=== PATIENT | male | born 1975 | race Caucasian/White ===

== ENCOUNTER → 2023-09-08 15:26 | Outpatient (CLI) | payer OTHER, SELFPAY ==
--- NOTE | ~2023-09-08 | XR_ITS ---
EXAMINATION: XR lumbar spine 2-3V DATE: 09/08/2023 15:40 INDICATION: Low back pain, unspecified. TECHNIQUE: 3 views of lumbar spine were obtained. COMPARISON: None. FINDINGS: Bone alignment is normal. There is mild chronic anterior wedging of T12 vertebral body. The re is mildly decreased disc height at L3-L4. There is multilevel mild facet joint osteoarthritis. IMPRESSION: 1. Mild lumbar spondylosis. Reviewed, dictated and finalized at location E. ON WRAPPER IMPRESSION: 1. Mild lumbar spondylosis.
== END ==
PROVIDERS: PCP Nurse Practitioner Family; Visit Provider Nurse Practitioner Family
DX: M54.32 Sciatica, left side (principal); M54.50 Low back pain, unspecified; M43.06 Spondylolysis, lumbar region
CPT/HCPCS: 72100

== ENCOUNTER 2023-09-16 13:00 | Outpatient (CLI) | payer OTHER, SELFPAY ==
--- NOTE | ~2023-09-16 | CT_ITS ---
EXAMINATION: CTA brain DATE: 09/16/2023 13:39 INDICATION: Sudden visual loss, unspecified eye. TECHNIQUE: Computed tomographic angiography (CTA) of the head was performed without and with 100 mL O mnipaque-350 intravenous contrast. Automated exposure control and iterative reconstruction technique were employed. The dose-length product was 1284.55 mGy-cm. Maximum intensity projection 3D reconstru ctions were created. Volume-rendered 3D reconstructions of the intracranial arteries were created by the technologist on a separate workstation. COMPARISON: None. FINDINGS: There is no intracranial hemorrhage, acute infarction, or abnormal intracranial mass lesion . The ventricles are normal in size. There is mucosal thickening in the paranasal sinuses including n ear complete opacification of right maxillary sinus. There is thickening and sclerosis of the ricardo o f right maxillary sinus, consistent with chronic sinusitis. The orbits are normal. There is a trace l eft mastoid effusion. There are vertebral arteries are codominant. There is no significant stenosis o f basilar artery or the posterior cerebral arteries. There is no significant stenosis of the intracra nial internal carotid arteries or anterior or middle cerebral arteries. Anterior communicating artery is normal. The posterior communicating arteries are normal. There is no aneurysm. IMPRESSION: 1. Normal brain. 2. No aneurysm or significant intracranial arterial stenosis. 3. Chronic sinusitis. Reviewed, dictated and finalized at location A.
--- NOTE | ~2023-09-16 | CT_ITS ---
EXAMINATION: CT cervical spine wo con DATE: 09/16/2023 13:39 INDICATION: Anesthesia of skin. TECHNIQUE: Computed tomography (CT) of the cervical spine was performed without intravenous contrast. Automated exposure control and iterative reconstruction technique were employed. The dose-length pro duct was 561.46 mGy-cm. COMPARISON: None FINDINGS: Bone alignment is normal. Vertebral body heights are normal. There is an old healed fractur e of spinous process of T1. Intervertebral disc heights are normal. The following disc levels are spe cifically discussed: C2-C3: There is mild bilateral uncovertebral joint osteoarthritis. There is mild bilateral facet join t osteoarthritis. There is no neural foraminal stenosis. There is no central canal stenosis. C3-C4: There is mild bilateral uncovertebral joint osteoarthritis. There is mild bilateral facet join t osteoarthritis. There is no neural foraminal stenosis. There is no central canal stenosis. C4-C5: There is mild bilateral uncovertebral joint osteoarthritis. There is mild bilateral facet join t osteoarthritis. There is no neural foraminal stenosis. There is no central canal stenosis. C5-C6: There is mild right uncovertebral joint osteoarthritis. There is mild bilateral facet joint os teoarthritis. There is no neural foraminal stenosis. There is no central canal stenosis. C6-C7: There is mild right uncovertebral joint osteoarthritis. There is mild bilateral facet joint os teoarthritis. There is mild right neural foraminal stenosis. There is no central canal stenosis. C7-T1: There is mild left uncovertebral joint osteoarthritis. There is moderate bilateral facet joint osteoarthritis. There is no neural foraminal stenosis. There is no central canal stenosis. IMPRESSION: 1. Mild cervical spondylosis. Reviewed, dictated and finalized at location A.
[2023-09-16 13:33] LABS: Estimated Glomerular Filt Rate > 60
== END 2023-09-16 13:01 | disposition home or self-care (01) ==
LOC: ANHIMG 13:01
PROVIDERS: PCP Nurse Practitioner Family; Visit Provider Nurse Practitioner Adult Health
DX: R20.2 Paresthesia of skin (principal); H53.139 Sudden visual loss, unspecified eye; R20.0 Anesthesia of skin; M43.02 Spondylolysis, cervical region; J32.9 Chronic sinusitis, unspecified
CPT/HCPCS: 36415; 70496; 72125; Q9967

== ENCOUNTER 2023-09-27 21:23 | Inpatient (IN) | payer OTHER, SELFPAY ==
--- NOTE | ~2023-09-27 | MR_ITS ---
EXAMINATION: MR brain/brain stem wo con DATE: 09/28/2023 08:29 INDICATION: Left lower extremity weakness and numbness. Vision change. TECHNIQUE: Magnetic resonance imaging (MRI) of the brain and brainstem was performed without intraven ous contrast. COMPARISON: Head CT 09/16/2023 FINDINGS: There are greater than 15 foci of nonspecific increased T2-weighted signal intensity in the cerebral white matter. There is no intracranial hemorrhage, acute infarction, or abnormal intracrani al mass lesion. The ventricles are normal in size. The orbits are normal. There is mucosal thickening in the paranasal sinuses including complete opacification of right maxillary sinus. The mastoid air cells are normal. IMPRESSION: 1. Mild nonspecific cerebral white matter disease. The differential diagnosis includes premature house coordinator aaron small vessel ischemic disease (especially if the patient has cardiovascular risk factors), demyel inating disease such as multiple sclerosis, drug abuse, vasculitis, or reactive astrocytosis (gliosis ) secondary to nonspecific etiology. Reviewed, dictated and finalized at location E. IMPRESSION: 1. Mild nonspecific cerebral white matter disease. The differential diagnosis i ncludes premature chronic small vessel ischemic disease (especially if the ryan ent has cardiovascular risk factors), demyelinating disease such as multiple sc lerosis, drug abuse, vasculitis, or reactive astrocytosis (gliosis) secondary t o nonspecific etiology.
--- NOTE | ~2023-09-27 | MR_ITS ---
EXAMINATION: MR lumbar spine wo/w con DATE: 09/28/2023 08:29 INDICATION: Left lower extremity weakness and numbness. TECHNIQUE: Magnetic resonance imaging (MRI) of the lumbar spine was performed without and with 20 mL MultiHance intravenous contrast. COMPARISON: None FINDINGS: There is 4 degrees dextrocurvature of thoracolumbar spine. There are chronic bilateral L5 p ars defects. There is 5 mm anterolisthesis of L5 on S1. There are Schmorl's nodes at many levels. The re is chronic mild height loss of L5 vertebral body posteriorly. There is moderately decreased disc h eight at L3-L4 and L5-S1. The distal spinal cord signal intensity is normal. The conus medullaris is at T12-L1. The following disc levels are specifically discussed: L1-L2: The disc does not extend beyond the endplate margin. There is mild bilateral facet joint osteo arthritis. There is no neural foraminal stenosis. There is no central canal stenosis. L2-L3: The disc does not extend beyond the endplate margin. There is moderate bilateral facet joint o steoarthritis. There is no neural foraminal stenosis. There is no central canal stenosis. L3-L4: The disc is bulging and has an annular fissure. There is mild bilateral facet joint osteoarthr itis. There is mild bilateral neural foraminal stenosis. There is mild central canal stenosis. L4-L5: There is a left foraminal protrusion. There is mild bilateral facet joint osteoarthritis. Ther e is mild left neural foraminal stenosis. There is no central canal stenosis. L5-S1: The disc is bulging and has an annular fissure. There is mild bilateral facet joint osteoarthr itis. There is mild bilateral neural foraminal stenosis. There is mild central canal stenosis. IMPRESSION: 1. Chronic bilateral L5 pars defects with grade 1 anterolisthesis of L5 on S1. 2. Moderate lumbar spondylosis. Reviewed, dictated and finalized at location E.
[2023-09-27 21:25] VITALS: BP 143/109; PULSE 73; RESP 20; TEMP 36.2; O2SAT 100
--- NOTE | 2023-09-27 23:59 | PM.IMHP ---
H&P: HPI History of Present Illness Date/Time: 09/27/23 23:59 Chief Complaint: back pain Narrative: this is a 47-year-old male with past medical history significant for hypertension, migraine headache. Patient presented to the emergency room due to intractable lower back pain with radiation bilaterally to lower extremities and left lower extremity weakness. Patient had been seen in the outpatient setting after participating in a [employer] class while lifting heavy equipment and strenuous exercise experimented excruciating lower back pain. Patient with possible bulging disc in the lumbar area today presents to the emergency room due to intractable pain and left lower extremity weakness. Patient has been admitted for further evaluation management and treatment. Review of Systems Review of Systems: Lower back pain, left lower extremity weakness, sensation of pins and needles and burning Constitutional: Constitutional: Denies chills, Denies fever(s) and Denies night sweats Eyes: Eyes: Reports other visual disturbances ( ) ENT: Denies dysphagia and Denies odynophagia Cardiovascular: Cardiovascular: Denies chest pain, Denies radiating jaw, neck or arm pain and Denies palpitations Respiratory: Respiratory: Denies cough, Denies excessive phlegm production and Denies dyspnea Gastrointestinal: Gastrointestinal: Denies abdominal pain, Denies dyspepsia, Denies diarrhea, Denies nausea and Denies vomiting Genitourinary: Genitourinary: Denies dysuria Musculoskeletal: Musculoskeletal: Reports back pain and Reports muscle weakness ( left lower extremity) Integumentary/Breasts: Skin/Breast: Denies rash Neurologic: Reports abnormal gait, Reports focal weakness ( left lower extremity), Reports loss of vision, Reports numbness, Reports radicular pain and Reports paresthesias Psychiatric: Psychiatric: Reports no additional psychiatric complaints and Reports as per HPI Endocrine: Endocrine: Denies cold intolerance, Denies fatigue, Denies flushing, Denies heat intolerance, Denies polyphagia, Denies polydipsia, Denies polyuria and Denies palpitations Hematologic/Lymphatic: Hematologic/Lymphatic: Reports no additional hematologic/lymphatic complaints and Reports as per HPI Allergic/Immunologic: Allergic/Immunologic: Reports no additional allergic/immunologic complaints and Reports as per HPI PMFSH Past Medical History Medical History Acute loss of vision Anxiety BMI 26.0-26.9,adult BMI 27.0-27.9,adult Bulging lumbar disc Lumbar spondylosis Migraine Numbness and tingling of both upper extremities Orbital fracture (~1989) surgical reconstruction with metal plates. Family History Family History Father Heart disease Diabetes mellitus Hypertension Mother Depression Anxiety Sibling Migraine Social History Social History Social History: Caffeine- soda Smoking status: Never smoker Second hand tobacco smoke exposure: Yes Alcohol intake: never Substance use: never Substance use type: does not use Do You Feel Safe in your Home?: Yes Lack of Transportation: No Lack of Food: Never True Current Housing: I Have Housing Concerned About Future Housing: No Difficulty Paying Gas/Electric Bills: No Difficulty Paying for Meds: No Currently Unemployed: No Education: Master's Degree or Higher Difficulty w/ Childcare or Family Care: No Living arrangements: with family Occupation/Education: occupation Additional occupation/education comments: [employer] Gender identity (if verbalized by the patient): Male Sexual Orientation (if Verbalized by the Patient): Straight or Heterosexual Spiritual care concerns: No Agree to blood products: Yes Meds Home Medications and Allergies Home Medications Medication Inst
[2023-09-28] VITALS (7 sets, daily range): BP systolic 124–152; BP diastolic 73–87; PULSE 54–101; RESP 17–20; TEMP 36.5–36.9; O2SAT 95–100; BMI 32.5; BMI 33.5
[2023-09-28] MEDS: HYDROcodone/acetaminophen (*CRX) 5-325 MG TABLET 1 TAB PO (00:05)
[2023-09-28 00:19] LABS: Basophils Absolute Auto 0.1 K/mm3 (0.0-0.1); Basophils Percent Auto 1.4 % (0.2-1.2); Eosinophils Absolute Auto 0.2 K/mm3 (0-0.3); Eosinophils Percent Auto 2.8 % (0-4.4); Hematocrit 44.8 % (42.0-52.0); Hemoglobin 15.2 g/dL (14.0-18.0); Immature Granulocyte Absolute 0.04 K/mm3 (0.00-0.031); Immature Granulocyte Percent A 0.6 % (0-0.5); Lymphocytes Absolute Auto 2.17 K/mm3 (0.9-3.2); Lymphocytes Percent Auto 33.9 % (18.3-44.2); Mean Corpuscular HGB Conc 33.9 g/dl (32-36); Mean Corpuscular Hemoglobin 30.5 pg (26-34); Mean Corpuscular Volume 89.8 fl (80-100); Mean Platelet Volume 9.4 fl (7.4-10.4); Monocytes Absolute Auto 0.8 K/mm3 (0.1-0.6); Monocytes Percent Auto 11.9 % (2.6-8.5); Neutrophils Absolute Auto 3.2 K/mm3 (1.3-6.7); Neutrophils Percent Auto 49.4 % (45.5-73.1); Platelet Count Result 345 k/mm3 (150-375); Red Blood Count 4.99 M/mm3 (4.6-6.20); Red Cell Distribution Width 12.1 % (11.5-14.5); White Blood Count 6.4 K/mm3 (4.5-10.0)
[2023-09-28 00:31] LABS: Alanine Aminotransferase 33 U/L (6-50); Albumin Level 4.2 g/dL (3.5-5.1); Alkaline Phosphatase 44 U/L (38-126); Anion Gap 7 mmol/L (8-16); Aspartate Amino Transferase 30 U/L (17-59); Bilirubin,Total 0.4 mg/dL (0.2-1.3); Blood Urea Nitrogen 16 mg/dL (9-20); Carbon Dioxide 23 mmol/L (22-30); Chloride 106 mmol/L (98-107); Estimated CRCL calculation 126 ml/min; Estimated Glomerular Filt Rate > 60; Glucose 99 mg/dL (65-110); Potassium 4.2 mmol/L (3.4-5.0); Sodium 136 mmol/L (137-145)
--- NOTE | 2023-09-28 00:32 | ED.BACK ---
HPI - Back Pain/Injury General Chief Complaint: Back Pain/Injury Stated Complaint: back pain Time Seen by Provider: 09/27/23 23:03 History of Present Illness HPI Narrative: Patient is a 47-year-old male who presents to the emergency department this evening complaining of lower back pain and left lower extremity weakness and numbness. Patient states the numbness is mainly along the medial aspect of his left foot. Patient sustained a lower back injury while doing CrossFit on September 02 and since then has been struggling lower back pain radiating to his left leg. Patient finally saw a neurosurgeon earlier today inform him that he has a bulging disc around L4 on L5 and recommended an MRI. Neurosurgeon told him to come to the emergency department if his symptoms worsen. who is currently present at bedside states that patient has been prescribed Percocet and a muscle relaxer to help with the pain and muscle spasms, however, he had an episode prior to arrival where he had severe back pain radiating to his left leg along with left leg weakness and numbness. states that it was hard for him to walk and she had to call the knee pretty get him to help her get him in the car and bring him here. She states that this has been completely debilitating for both of them as has not been able to work and she has not been able to work either since she has been helping take care of him. 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 Patient denies any bowel or bladder incontinence. There are no other modifying, alleviating, or precipitating factors at this time. Related Data Home Medications Medication Instructions Recorded Confirmed topiramate PO 09/27/23 09/27/23 Allergies Allergy/AdvReac Type Severity Reaction Status Date / Time No Known Allergies Allergy Verified 09/27/23 21:32 Review of Systems Review of Systems: All systems are reviewed and are negative unless stated otherwise in the HPI. [facility] Past Medical History Medical History Acute loss of vision Anxiety BMI 26.0-26.9,adult BMI 27.0-27.9,adult Bulging lumbar disc Lumbar spondylosis Migraine Numbness and tingling of both upper extremities Orbital fracture (~1989) surgical reconstruction with metal plates. Family History Family History Father Heart disease Diabetes mellitus Hypertension Mother Depression Anxiety Sibling Migraine Social History Social History Social History: Caffeine- soda Smoking status: Never smoker Second hand tobacco smoke exposure: Yes Alcohol intake: never Substance use: never Substance use type: does not use Do You Feel Safe in your Home?: Yes Lack of Transportation: No Lack of Food: Never True Current Housing: I Have Housing Concerned About Future Housing: No Difficulty Paying Gas/Electric Bills: No Difficulty Paying for Meds: No Currently Unemployed: No Education: Master's Degree or Higher Difficulty w/ Childcare or Family Care: No Living arrangements: with family Occupation/Education: occupation Additional occupation/education comments: -[employer] Gender identity (if verbalized by the patient): Male Sexual Orientation (if Verbalized by the Patient): Straight or Heterosexual Spiritual care concerns: No Agree to blood products: Yes Exam Narrative: General: Alert, awake, afebrile, in no acute distress. HEENT: PERRL, no rhinorrhea, no post nasal drip, oropharynx clear. Neck: Trachea midline, no JVD, no lymphadenopathy. Cardiovascular: Regular rate and rhythm, no murmurs, rubs or gallops, no peripheral edema. Respiratory: Clear to auscultation bilaterally, no tachypnea, no wheezing, no rhonchi, no rubs, no respiratory distress. Abdomen: Soft, nontender, nondistended
[2023-09-28] MEDS: dexAMETHasone SOD PHOS INJ 10 MG/ML 1 ML VIAL 18 MG IV PUSH (03:23)
[2023-09-28] MEDS: ACETAMINOPHEN 500 MG TABLET 1000 MG PO (03:23)
[2023-09-28] MEDS: traMADol HCL (*CRX) 50 MG TABLET PO ×2 (03:24→15:09)
[2023-09-28] MEDS: HYDROmorphone HCL INJ (*CRX) 1 MG/ML SYR IV PUSH ×4 (03:24→16:57)
--- NOTE | 2023-09-28 04:53 | PC.NURSE ---
Pt A&O x4, able to make needs known. Pt c/o pain, numbness, tingling to BLE. Admission packet reviewed, medications reconciled, pt educated on rights and responsibilities, call light use explained, all questions answered.
--- NOTE | 2023-09-28 12:14 | PCCCNOTE ---
On 09/28/23, the student, [Farida Freedman], provided care and completed [facility] documentation on this patient. I have reviewed the student's documentation and agree with the findings.
--- NOTE | 2023-09-28 13:51 | PM.IMPN ---
Progress Note: A&P Assessment and Plan (1) Lumbar radiculopathy: Code(s): M54.16 - Radiculopathy, lumbar region Status: Acute (2) Spondylolysis of lumbosacral region: Code(s): M43.07 - Spondylolysis, lumbosacral region Status: Acute (3) Low back pain radiating to both legs: Code(s): M54.50 - Low back pain, unspecified; M79.604 - Pain in right leg; M79.605 - Pain in left leg Status: Acute (4) Bulging lumbar disc: Code(s): M51.36 - Other intervertebral disc degeneration, lumbar region Status: Acute (5) Hypertension: Qualifiers: Hypertension type: primary hypertension Qualified Code(s): I10 - Essential (primary) hypertension Code(s): I10 - Essential (primary) hypertension Status: Acute Plan Acute Radicular back pain BLE weakness/losses function to walk CT 09/2023: There is? bilateral pars defect at L5 without spondylolisthesis.? At L4-5 there is a bridging anterior osteophyte forming, disc height loss with bulging disc seen causing [id number] central stenosis Pain management consult to neurosurgery MRI/MRA spine Blurred Vision following with [facility]y at [facility] likely ocular migraines MRI head showed no acute stroke Resume Topiramate HTN Stable resumed home medications BP per unit protocol Code status: Full code per patient DVT prophylaxis: SCD Stress ulcer prophylaxis: Protonix 40 daily PT/OT notes: Pending Disposition: Patient continues admission for uncontrolled severe lumbar back pain with difficulty ambulating, consulte to neurosurgery, pain management and MRI pending. Time Spent With Patient Time with patient: 15 - 25 minutes Subjective Date/time seen: 09/28/23 13:51 Interval history: Admission: Medical Record This is a 47-year-old male with past medical history significant for hypertension, migraine headache.? Patient presented to the emergency room due to intractable lower back pain with radiation bilaterally to lower extremities and left lower extremity weakness.? Patient had been seen in the outpatient setting after participating in a CrossFit class while lifting heavy equipment and strenuous exercise experimented excruciating lower back pain.? Patient with possible bulging disc in the lumbar area today presents to the emergency room due to intractable pain and left lower extremity weakness.? Patient has been admitted for further evaluation management and treatment. 09/27: Patient continues to have severe back pain and inability to ambulate, near incontinence, weakness an numbness down left leg. MRI pending and consult to neurosurgery for further recommendations. As noted in ED concern for L4-L5 herniated disc. Review of Systems Review of Systems: All systems reviewed & are unremarkable except as noted in HPI and below Exam Narrative: Physical Exam: GENERAL: Alert and oriented x 3. No acute distress. Well-nourished. EYES: EOMI. No scleral icterus. PERRLA. HEENT: Moist mucous membranes. No cervical lymphadenopathy. LUNGS: Clear to auscultation bilaterally. No accessory muscle use. CARDIOVASCULAR: Regular rate and rhythm. No murmur. No JVD. S1-S2 ABDOMEN: Soft, mild tenderness and non-distended. No palpable masses. EXTREMITIES: Severe tenderness to lumbar with BLE weakness SKIN: No rashes or lesions. Skin warm, dry. NEUROLOGIC: No focal neurological deficits. CN II-XII grossly intact PSYCHIATRIC: Appropriate mood and affect. Good judgement and insight. No visual or auditory hallucinations. No suicidal or homicidal ideation. Objective Data Vital Signs Vital Signs: Vital Signs - 24 hr 09/27/23 21:25 09/28/23 00:58 09/28/23 01:09 Temperature 97.1 F L Pulse Rate 73 57 L 57 L Respiratory Rate 20 18 20 Blood Pressure 143/109 H 135/80 128/80 Pulse Oximetry 100 100 100 Oxygen Delivery Room Air 09/28/23 01:25 09/28/23 04:46 09/28/23 05:22 Temperature 9
[2023-09-28] MEDS: FLUoxetine HCL 20 MG CAPSULE 40 MG PO (15:10)
[2023-09-28] MEDS: TOPIRAMATE 25 MG TABLET 50 MG PO (20:08)
[2023-09-28] MEDS: HYDROcodone/acetaminophen (*CRX) 10-325 MG TABLET 1 TAB PO (20:08)
[2023-09-28] MEDS: METAXALONE 800 MG TABLET PO (22:59)
[2023-09-29 05:40] LABS: Hematocrit 45.3 % (42.0-52.0); Mean Corpuscular HGB Conc 33.1 g/dl (32-36); Mean Corpuscular Hemoglobin 29.6 pg (26-34); Mean Corpuscular Volume 89.5 fl (80-100); Mean Platelet Volume 9.5 fl (7.4-10.4); Platelet Count Result 376 k/mm3 (150-375); Red Blood Count 5.06 M/mm3 (4.6-6.20); Red Cell Distribution Width 11.8 % (11.5-14.5); White Blood Count 12.7 K/mm3 (4.5-10.0)
[2023-09-29 05:58] LABS: Alanine Aminotransferase 30 U/L (6-50); Albumin Level 4.2 g/dL (3.5-5.1); Alkaline Phosphatase 41 U/L (38-126); Anion Gap 7 mmol/L (4-12); Aspartate Amino Transferase 21 U/L (17-59); Bilirubin,Total 0.5 mg/dL (0.2-1.3); Blood Urea Nitrogen 16 mg/dL (9-20); Calcium 8.9 mg/dL (8.4-10.2); Carbon Dioxide 25 mmol/L (22-30); Chloride 104 mmol/L (98-107); Estimated CRCL calculation 126 ml/min; Estimated Glomerular Filt Rate > 60; Glucose 106 mg/dL (65-110); Sodium 136 mmol/L (137-145)
[2023-09-29 06:00] VITALS: BP 127/79; PULSE 64; RESP 20; TEMP 36.6; O2SAT 99
[2023-09-29 09:07] VITALS: BP 142/80; PULSE 81
[2023-09-29] MEDS: amLODIPine BESYLATE 5 MG TABLET 10 MG PO (09:08)
[2023-09-29] MEDS: FLUoxetine HCL 20 MG CAPSULE 40 MG PO (09:08)
[2023-09-29] MEDS: HYDROcodone/acetaminophen (*CRX) 5-325 MG TABLET 1 TAB PO (09:09)
[2023-09-29] MEDS: PANTOPRAZOLE 40 MG TABLET PO (09:09)
[2023-09-29] MEDS: OLMESARTAN MEDOXOMIL 20 MG TABLET 40 MG PO (09:09)
--- NOTE | 2023-09-29 13:07 | WPDNEURCNPN ---
Assessment and Plan Assessment and plan (1) Spondylolysis of lumbosacral region: Code(s): M43.07 - Spondylolysis, lumbosacral region Status: Acute (2) Low back pain radiating to both legs: Code(s): M54.50 - Low back pain, unspecified; M79.604 - Pain in right leg; M79.605 - Pain in left leg Status: Acute Assessment and Plan: Patient presented to the Emergency Dept due to exacerbation of low back pain and left greater than right leg symptoms that have been going on since 09/03/2023, while doing CrossFit exercises. MRI of the lumbar spine revealed spondylolisthesis of L5 over S1 with bilateral L5 pars defect. There is mild neuroforaminal stenosis on the left at L4-5. There is no significant central stenosis or further foraminal stenosis throughout. Suspect the patient is symptomatic from his spondylolysis/ spondylolisthesis at L5-S1 and could have instability at this level, this would be confirmed by obtaining lumbar flexion and extension x-rays. Dr. Ching discussed with the patient his yesterday, and recommended PM treatments given his symptoms have been occurring only for this past month. He may benefit from an L5-S1 epidural steroid injection vs a left L5-S1 transforaminal MAYRA.. If this consult cannot be obtained while the patient is in-house, then we recommend he follow-up with PM as an outpatient. I will order an LSO brace for the patient to have and wear when upright and ambulating as this may give him a little extra support especially if he does have instability at this level. He was instructed to follow-up with Dr. Ching in the near future and to have lumbar x-rays including flexion and extension views done just prior to this visit. Our office will coordinate this with the patient and placed these x-ray orders. Consult date: 09/29/23 Reason for consult: ?The patient is a pleasant 47-year-old male who presented To the ER on this admission with intractable back and left leg symptoms. He was just seen in our clinic on 09/27/2023, this was his initial visit. He had several symptom complaints on that visti but mainly for severe low back pain radiating into the posterior aspect of his left leg to his knee region.? He also reports numbness and tingling sensation in his bilateral groin region, medial aspect of bilateral thighs, and? bilateral feet diffusely. ? His symptoms started after a CrossFit injury on 09/03/2023,? the patient has not be able to get out of severe pain since this date.? ? He has other complaints in addition to increase migraines and spotty vision that have not resolved after the migraines improved and is currently being evaluated by Dr. Brown with Neurology with an? MRI/MRA of the brain and MRA cervical spine pending.? ? Patient had a CTA of the brain that was negative for any vascular lesion nor acute stroke on that study.? He's also had a CT of the cervical spine and lumbar spine.? The lumbar CT study shows he has bilateral L5 pars defect /spondylolysis,? and disc height loss mainly at L4-5 with a central disc bulge and anterior bridging osteophyte. Patient states he presented to the ER due to worsening of numbness and tingling in the left foot along the great toe and dorsum region and then felt like it was ascending up his leg. He states his son touch discharge object to his foot and he did not feel it. He also reports ongoing back pain with radiation into bilateral hips. An MRI was obtained of the lumbar spine and also of the brain. No acute pathology was noted on the brain MRI. The patient was also evaluated by my attending Dr. Ching yesterday. HPI: Tramaine Gonsalez is a 47 year old male PMFSH Past Medical History Medical History Acute loss of vision Anxiety BMI 26.0-26.9,adult BMI 27.0-27.9,adult Bulging lumbar disc Lumbar spondylosis Migraine Numbness and tingling of both upper ex
[2023-09-29 13:37] VITALS: BP 128/59; PULSE 65; RESP 16; TEMP 36.4; O2SAT 97
[2023-09-29] MEDS: HYDROcodone/acetaminophen (*CRX) 10-325 MG TABLET 1 TAB PO (14:44)
--- NOTE | 2023-09-29 14:52 | PM.IMPN ---
Progress Note: A&P Assessment and Plan (1) Lumbar radiculopathy: Code(s): M54.16 - Radiculopathy, lumbar region Status: Acute Assessment and Plan: BLE weakness/losses function to walk CT 09/2023: There is? bilateral pars defect at L5 without spondylolisthesis.? At L4-5 there is a bridging anterior osteophyte forming, disc height loss with bulging disc seen causing [id number] central stenosis Pain management consult to neurosurgery MRI/MRA spine (2) Spondylolysis of lumbosacral region: Code(s): M43.07 - Spondylolysis, lumbosacral region Status: Acute (3) Low back pain radiating to both legs: Code(s): M54.50 - Low back pain, unspecified; M79.604 - Pain in right leg; M79.605 - Pain in left leg Status: Acute (4) Bulging lumbar disc: Code(s): M51.36 - Other intervertebral disc degeneration, lumbar region Status: Acute (5) Hypertension: Qualifiers: Hypertension type: primary hypertension Qualified Code(s): I10 - Essential (primary) hypertension Code(s): I10 - Essential (primary) hypertension Status: Acute Plan Acute Radicular back pain Blurred Vision following with [facility]y [facility] likely ocular migraines MRI head showed no acute stroke Resume Topiramate HTN Stable resumed home medications BP per unit protocol Code status: Full code per patient DVT prophylaxis: SCD Stress ulcer prophylaxis: Protonix 40 daily PT/OT notes: Pending Disposition: Patient continues admission for uncontrolled severe lumbar back pain with difficulty ambulating, consulte to neurosurgery, pain management and MRI pending. Subjective Date/time seen: 09/29/23 14:52 Objective Data Vital Signs Vital Signs: Vital Signs - 24 hr 09/28/23 21:25 09/29/23 06:00 09/29/23 09:07 Temperature 98.2 F 97.9 F Pulse Rate 101 H 64 81 Respiratory Rate 19 20 Blood Pressure 132/76 127/79 142/80 H Pulse Oximetry 98 99 Oxygen Delivery 09/29/23 13:37 09/29/23 08:00 Temperature 97.5 F L Pulse Rate 65 Respiratory Rate 16 Blood Pressure 128/59 L Pulse Oximetry 97 Oxygen Delivery Room Air Intake/Output Intake/Output: Intake & Output 09/26/23 09/27/23 09/28/23 09/29/23 23:59 23:59 23:59 23:59 Intake Total 510 1075 Balance 510 1075 Meds/Results Medications: Active Medications Generic Name Dose Route Start Last Admin Trade Name Freq PRN Reason Stop Dose Admin Acetaminophen 1,000 mg 09/28/23 02:26 09/28/23 03:23 Acetaminophen 500 Mg Tablet PO 1,000 mg Q6H PRN Administration Mild Pain (1-3) or Fever Hydrocodone Bitart/Acetaminophen 1 tab 09/28/23 17:48 09/29/23 09:09 Hydrocodone/Acetaminophen (*Crx) 5-325 Mg Tablet PO 1 tab Q6H PRN Administration Pain Rated 4-6 Hydrocodone Bitart/Acetaminophen 1 tab 09/28/23 17:51 09/29/23 14:44 Hydrocodone/Acetaminophen (*Crx) 10-325 Mg Tablet PO 1 tab Q6H PRN Administration Pain Rated 7-10 Amlodipine Besylate 10 mg 09/29/23 09:00 09/29/23 09:08 Amlodipine Besylate 5 Mg Tablet PO 10 mg DAILY SIMEON Administration Dexamethasone Sodium Phosphate 18 mg 09/28/23 03:00 09/29/23 11:05 Dexamethasone Sod Phos Inj 10 Mg/Ml 1 Ml Vial 0.15 mg/kg (18 mg) Not Given IV PUSH Q6HR SIMEON Fluoxetine HCl 40 mg 09/28/23 14:15 09/29/23 09:08 Fluoxetine Hcl 20 Mg Capsule PO 40 mg DAILY SIMEON Administration Hydromorphone HCl 1 mg 09/28/23 02:26 09/28/23 16:57 Hydromorphone Hcl Inj (*Crx) 1 Mg/Ml Syr IV PUSH 1 mg Q3H PRN Administration Pain Rated 7-10 Metaxalone 800 mg 09/28/23 14:07 09/28/23 22:59 Metaxalone 800 Mg Tablet PO 800 mg QID PRN Administration muscle pain Olmesartan 40 mg 09/29/23 09:00 09/29/23 09:09 Olmesartan Medoxomil 20 Mg Tablet PO 40 mg DAILY SIMEON Administration Pantoprazole Sodium 40 mg 09/29/23 09:00 09/29/23 09:09 Pantoprazol
--- NOTE | 2023-09-29 16:05 | PM.DS ---
DS: Admitting Diagnosis Discharge Date 09/29/23 Admitting Diagnosis bilateral lower extremity numbness DS: Discharge Diagnosis Discharge Diagnosis (1) Lumbar radiculopathy: Code(s): M54.16 - Radiculopathy, lumbar region Status: Acute (2) Spondylolysis of lumbosacral region: Code(s): M43.07 - Spondylolysis, lumbosacral region Status: Acute (3) Low back pain radiating to both legs: Code(s): M54.50 - Low back pain, unspecified; M79.604 - Pain in right leg; M79.605 - Pain in left leg Status: Acute (4) Bulging lumbar disc: Code(s): M51.36 - Other intervertebral disc degeneration, lumbar region Status: Acute (5) Hypertension: Qualifiers: Hypertension type: primary hypertension Qualified Code(s): I10 - Essential (primary) hypertension Code(s): I10 - Essential (primary) hypertension Status: Acute DS: Summary Hospital Course Hospital Course: This is a 47-year-old male with past medical history significant for hypertension, migraine headache.? Patient presented to the emergency room due to intractable lower back pain with radiation bilaterally to lower extremities and left lower extremity weakness.? Patient had been seen in the outpatient setting after participating in a [employer] class while lifting heavy equipment and strenuous exercise experimented excruciating lower back pain.? CT of the lumbar spine showing pars defect at L5 without spondylolisthesis, L4-L5 there is a bridging anterior osteophyte forming, disc height loss and bulging disc seen causing osxl-av-[id number] central stenosis. Patient has been seeing Neurosurgery outpatient for this back pain. MRI of the lumbar spine showing chronic bilateral L5 pars defects with grade 1 anteriorlisthesis of L5 on S1 and moderate lumbar spondylosis. Neurosurgery consulted. patient still able to walk and has control of bowels and bladder. Patient is still in pain although this is suspected due to his injury Nerosurgry recommending an LSO brace and a follow-up with them as an outpatient. His labs and vital signs are stable knee is medically clear for discharge. Time Spent with Patient Time attestation: Total time spent providing and/or coordinating discharge services: Exam Narrative: GENERAL: Comfortable, no acute distress HENMT: moist mucous membranes EYES: EOM intact b/l NECK: no lymphadenopathy RESPIRATORY: clear to auscultation, no increased respiratory effort CARDIO: Regular rate and rhythm GI: soft, nontender, bowel sounds present SKIN/EXTREMITIES: no rashes, no edema, no redness or tenderness NEURO: PROM intact, answers questions appropriately, A&O x4 DS: Data Data Completed and Pending Labs on day of discharge: Labs from last 24 hours 09/29/23 05:05 WBC 12.7 H RBC 5.06 Hgb 15.0 Hct 45.3 MCV 89.5 MCH 29.6 MCHC 33.1 RDW 11.8 Plt Count 376 H MPV 9.5 Sodium 136 L Potassium 4.0 Chloride 104 Carbon Dioxide 25 Anion Gap 7 L BUN 16 Creatinine 0.90 Estim Creat Clear Calc 126 Estimated GFR > 60 Glucose 106 Calcium 8.9 Total Bilirubin 0.5 AST 21 ALT 30 Alkaline Phosphatase 41 Total Protein 7.0 Albumin 4.2 Discharge Plan Discharge Attending physician on discharge: Ervin Tesfaye Consulting providers: William Berg Discharging Clinician: Ellie Lino Patient Disposition: Home, Self-Care Activity: as tolerated Diet: regular Discharge Instructions: Plan follow-up with Neurosurgery in approximately 1 week. Please wear LSO brace while upright and when ambulating. Plan for outpatient x-rays of the lumbar spine. Follow up with pain management. Discharge disposition: Take medications as prescribed Monitor blood pressures Avoid social areas, you wear a mask when in social settings Encouraged to continue with yearly vaccinations Return to the emergency department if he developed sudden shortness of breath, chest pain, na
== END 2023-09-29 17:10 | disposition home or self-care (01) | DRG 552 ==
LOC: ANHED 09-28 00:33 → ANH2MED 09-28 01:02
PROVIDERS: Nurse Practitioner Family; Admitting Provider Internal Medicine; Emergency Provider Emergency Medicine; PCP Family Medicine; Visit Provider Family Medicine
DX: M47.26 Other spondylosis with radiculopathy, lumbar region (principal); M51.36 Other intervertebral disc degeneration, lumbar region; I10 Essential (primary) hypertension; G43.909 Migraine, unspecified, not intractable, without status migrainosus; F41.9 Anxiety disorder, unspecified
CPT/HCPCS: 36415; 70551; 72158; 80053; 85025; 85027; 99285; A9270; A9577; J1100; J1170

== ENCOUNTER 2023-10-03 08:50 | Outpatient (CLI) | payer OTHER, SELFPAY ==
--- NOTE | ~2023-10-03 | MR_ITS ---
MRI of the cervical spine Clinical History: Paresthesia Technique: Axial T2-weighted and gradient images, and sagittal T1-weighted, T2-weighted, and STIR thelma ges were acquired. Findings: There is no fracture or subluxation of the cervical spine. Vertebral bodies maintain normal height and alignment. No bone marrow signal abnormality seen. At C2-C3, there is no disc bulge or herniation. No spinal canal stenosis, cord compression, or neural foraminal narrowing. At C3-C4, there is minimal disc osteophyte complex. No spinal canal stenosis, cord compression, or de finite neural foraminal narrowing. At C4-C5, there is minimal disc osteophyte complex. No spinal canal stenosis, cord compression, or de finite neural foraminal narrowing. At C5-C6, there is no disc bulge or herniation. No spinal canal stenosis, cord compression, or neural foraminal narrowing. At C6-C7, there is probable disc osteophyte complex at the right foraminal region with mild right tito ral foraminal narrowing. Left neural foramen preserved. No central canal stenosis or cord compression . No abnormal signal evident in the spinal cord. Paravertebral soft tissues are unremarkable. Impression: Mild degenerative spondylosis, as above. Reviewed, dictated and finalized at location . Impression: Mild degenerative spondylosis, as above.
== END 2023-10-03 08:51 | disposition home or self-care (01) ==
PROVIDERS: PCP Family Medicine; Visit Provider Nurse Practitioner Adult Health
DX: R20.2 Paresthesia of skin (principal); R20.0 Anesthesia of skin; M43.02 Spondylolysis, cervical region
CPT/HCPCS: 72141

== ENCOUNTER 2023-10-05 12:33 | Outpatient (CLI) | payer OTHER, SELFPAY ==
--- NOTE | ~2023-10-05 | XR_ITS ---
XR lumbar spine min 4V DATE: 10/05/2023 13:13 INDICATION: Skin anesthesia TECHNIQUE: Weightbearing AP, lateral, coned lateral lumbosacral and flexion and extension lateral vie ws COMPARISON: None FINDINGS: There is suggestion of L5 pars intra-articular is defects with grade 1 anterolisthesis at L 5-S1, relatively stable in flexion, extension and neutral. Moderately prominent degenerative disc disease and prominent anterior an mild posterior spurring at L 3-4. The remaining lumbar and lumbosacral interspaces appear relatively well preserved. No fracture or bone destruction is noted otherwise. The included lower thoracic and lumbar pedicles a re intact. The sacroiliac joints appear normal. IMPRESSION: Suspected bilateral pars interarticularis defects at L5 with grade 1 anterolisthesis at L 5-S1 Moderately prominent degenerative disc disease at L3-4 Reviewed, dictated and finalized at location B. IMPRESSION: Suspected bilateral pars interarticularis defects at L5 with grade 1 anterolisthesis at L5-S1 Moderately prominent degenerative disc disease at L3-4
== END 2023-10-05 12:34 | disposition home or self-care (01) ==
PROVIDERS: PCP Family Medicine; Visit Provider Physician Assistant
DX: M51.36 Other intervertebral disc degeneration, lumbar region (principal)
CPT/HCPCS: 72110

== ENCOUNTER 2023-11-30 11:37 | Outpatient (CLI) | payer OTHER, SELFPAY ==
--- NOTE | 2023-11-30 11:30 | ECG_ITS ---
SEE SCANNED COPY FOR CONFIRMED REPORT MTDD
[2023-11-30 12:17] LABS: Hematocrit 44.2 % (42.0-52.0); Mean Corpuscular HGB Conc 33.9 g/dl (32-36); Mean Corpuscular Hemoglobin 30.2 pg (26-34); Mean Corpuscular Volume 89.1 fl (80-100); Mean Platelet Volume 9.4 fl (7.4-10.4); Platelet Count Result 365 k/mm3 (150-375); Red Blood Count 4.96 M/mm3 (4.6-6.20); Red Cell Distribution Width 12.7 % (11.5-14.5); White Blood Count 6.8 K/mm3 (4.5-10.0)
[2023-11-30 12:22] LABS: Anion Gap 6 mmol/L (4-12); Blood Urea Nitrogen 16 mg/dL (9-20); Carbon Dioxide 26 mmol/L (22-30); Chloride 108 mmol/L (98-107); Estimated Glomerular Filt Rate > 60; Glucose 92 mg/dL (65-110); Potassium 4.3 mmol/L (3.4-5.0); Sodium 140 mmol/L (137-145)
[2023-11-30 12:25] LABS: Appearance Urine Clear (Clear); Bilirubin Urine Negative (Negative); Blood Urine Negative (Negative); Color Urine Yellow (Yellow); Glucose Urine UA Negative (Negative); Ketones Urine Negative (Negative); Leukocyte Esterase Ur Negative LEU/UL (Negative); Nitrate Urine Negative (Negative); Protein Urine Negative (Negative); Specific Grav Ur 1.006 (1.001-1.035); Urobilinogen Urine 0.2 mg/dL (<2.0); pH Urine 5.5 (5.0-9.0)
[2023-11-30 12:27] LABS: INR 0.9; Prothrombin Time 12.4 Seconds (11.1-14.7)
[2023-11-30 12:28] LABS: Partial Thromboplastin Time 24.3 Seconds (22.3-36.8)
[2023-11-30 12:32] LABS: Add Urine Microscopic? NO
== END 2023-11-30 11:38 | disposition home or self-care (01) ==
LOC: ANHSURGERY 11:44
PROVIDERS: PCP Family Medicine; Visit Provider Neurological Surgery
DX: Z01.818 Encounter for other preprocedural examination (principal); M54.16 Radiculopathy, lumbar region; I10 Essential (primary) hypertension
CPT/HCPCS: 36415; 80048; 81003; 85027; 85610; 85730; 86850; 86900; 86901; 93005

== ENCOUNTER 2023-12-01 21:04 | Emergency (ER) | payer OTHER, SELFPAY ==
--- NOTE | ~2023-12-01 | XR_ITS ---
EXAM: XR knee RT min 4V DATE: 12/01/2023 21:27 HISTORY: laceration . COMPARISON: None available. FINDINGS: Normal mineralization. No fracture or dislocation. No lytic or blastic lesion. Mild medial joint space narrowing. Mild tricompartmental osteophytosis. No erosion or periosteal change. Minimal vascular calcification. IMPRESSION: No acute osseous finding in the right knee. Reviewed, dictated and finalized at location K.
[2023-12-01 21:05] VITALS: BP 137/82; PULSE 86; RESP 16; TEMP 36.4; O2SAT 96
--- NOTE | 2023-12-01 21:40 | ED.LOWEXIN ---
HPI - Extremity Injury (Lower) General Chief Complaint: Extremity Injury, Lower Stated Complaint: right knee laceration Time Seen by Provider: 12/01/23 21:18 History of Present Illness HPI Narrative: 48-year-old male presents to emergency department with his at bedside for laceration proximal to his right knee that occurred just prior to arrival. 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 Last Tdap in 2016. Kerlix applied. Active mild oozing. No difficulty with extension or flexion of his knee. Related Data Home Medications Medication Instructions Recorded Confirmed topiramate 50 mg PO QHS 09/27/23 11/26/23 Allergies Allergy/AdvReac Type Severity Reaction Status Date / Time No Known Allergies Allergy Verified 11/26/23 15:01 Review of Systems Review of Systems: CONSTITUTIONAL: Denies fever, chills, or sweats. EYES: Denies visual changes, redness, or discharge. ENT: Denies rhinorrhea, congestion, sore throat, or otalgia. CARDIOVASCULAR: Denies chest pain, palpitations, or edema. RESPIRATORY: Denies cough or dyspnea. GASTROINTESTINAL: Denies abdominal pain, nausea, vomiting, or diarrhea. GENITOURINARY: Denies dysuria or hematuria. SKIN: See HPI MUSCULOSKELETAL: Denies back pain, joint pain, or myalgia. NEUROLOGIC: Denies headache, numbness, or weakness. PSYCHIATRIC: Denies anxiety or depression. [facility] Past Medical History Medical History Acute loss of vision Anxiety BMI 26.0-26.9,adult BMI 27.0-27.9,adult BMI 34.0-34.9,adult Bulging lumbar disc Lumbar spondylosis Migraine Numbness and tingling of both upper extremities Orbital fracture (~1989) surgical reconstruction with metal plates. Surgical History Surgical History Hx of facial fracture repair Family History Family History Father Heart disease Diabetes mellitus Hypertension Mother Depression Anxiety Sibling Migraine Social History Social History Social History: Caffeine- soda Smoking status: Never smoker Second hand tobacco smoke exposure: Yes Alcohol intake: never Substance use: never Substance use type: does not use Do You Feel Safe in your Home?: Yes Lack of Transportation: No Lack of Food: Never True Current Housing: I Have Housing Concerned About Future Housing: No Difficulty Paying Gas/Electric Bills: No Difficulty Paying for Meds: No Currently Unemployed: No Education: Master's Degree or Higher Difficulty w/ Childcare or Family Care: No Living arrangements: with family Occupation/Education: occupation Additional occupation/education comments: -[employer] Gender identity (if verbalized by the patient): Male Sexual Orientation (if Verbalized by the Patient): Straight or Heterosexual Spiritual care concerns: No Agree to blood products: Yes Exam Narrative: GENERAL: Well-appearing, well-nourished, and in no acute distress. HEAD: Normocephalic, atraumatic. NECK: Supple. CHEST: Clear to auscultation. No respiratory distress. HEART: Regular rate and rhythm. No murmur heard. Normal peripheral pulses. EXTREMITIES: Normal range of motion. No edema. SKIN: 0.5 cm linear laceration to the anterior aspect of the distal femur with mild oozing. No deep structures or foreign bodies visualized. Patient has full active extension and flexion of knee. Extremity warm and dry. NEURO: No focal deficits. Alert and oriented x3 Course Vital Signs Vital signs: Vital Signs Temperature 97.6 F 12/01/23 21:05 Pulse Rate 86 12/01/23 21:05 Respiratory Rate 16 12/01/23 21:05 Blood Pressure 137/82 12/01/23 21:05 Pulse Oximetry 96 12/01/23 21:05 Oxygen Delivery Room Air 12/01/23 21
[2023-12-01 22:03] VITALS: BP 122/75; PULSE 59; RESP 16; TEMP 36.2; O2SAT 97
[2023-12-01] MEDS: TETANUS,DIPHTHERIA,AC PERTUSSIS ADULT (0.5 ML) BOOSTRIX IM (22:25)
[2023-12-01 22:35] VITALS: BP 138/48; PULSE 78; RESP 16; TEMP 36.6; O2SAT 99
== END 2023-12-01 22:38 | disposition home or self-care (01) ==
PROVIDERS: Emergency Provider Physician Assistant; PCP Family Medicine
DX: S81.011A Laceration without foreign body, right knee, initial encounter (principal); Z23 Encounter for immunization; W26.8XXA Contact with other sharp object(s), not elsewhere classified, initial encounter
CPT/HCPCS: 12001; 73564; 90471; 90715; 99283

== ENCOUNTER 2023-12-07 00:20 | Day surgery (SDC) | payer OTHER, SELFPAY ==
[2023-11-26 15:03] VITALS: BMI 30.7
--- NOTE | 2023-11-26 15:08 | PC.NURSE ---
Report to the Outpatient Waiting Room, entrance under the green pavilion located off [facility], at time _0800_ on date _[id number]_. Planned Procedure Time: _1000_. Time changes happen often and if your time is changed the preop area will call you the afternoon before. - You and your visitor will be asked to self-screen and do not enter if you have any COVID symptoms. - A mask is optional within the hospital at this time. Patients may have clear liquids (water, carbonated beverages, clear teas, apple juice) until 3 hours prior to surgery with a maximum of 20 ounces. - No food from midnight until time of surgery Take the following medications with a SIP of water the morning of surgery: ____Fluoxetine DO NOT STOP ANY OF YOUR OTHER PRESCRIPTION MEDICATIONS PRIOR TO SURGERY ?EXCEPT THE FOLLOWING Medications to discontinue per physician ____None Tramaine says he received no instructions from Dr Ching office regarding Metaxalone. Date to take last dose Please no make-up, nail pashto, hairspray, perfume, deodorant, or body powder the day of surgery. No jewelry (including any body piercings) or valuables the day of surgery, leave them at home. Please take a shower or bath the night before, or the morning of, surgery with an antibacterial soap. Wear comfortable, loose fitting clothing. - Jewelry must be removed prior to entering the operating room. Rings and piercings that are not removed may be cut off. - The hospital will not accept responsibility for valuables. - Please leave all valuables, including medications, at home the day of surgery. If you are going home after surgery, a licensed dumpcart driver must drive you home. - NO public transportation without another adult if you receive anesthesia. - We recommend that an adult stay with you for 24 hours following discharge. - We also recommend that you do not drive, make important decision, drink alcoholic beverages, or take any drugs that were not prescribed by your health care provider for at least 24 hours after your discharge time. Follow any additional instructions given to you from your surgeon. If you or anyone in your household have experienced Covid symptoms in the past week, please notify your surgeon or the nurse liaison at the phone number below for possible testing. Telephone instructions given to __Ryan__and asked if any additional questions and then verbalized understanding. Patient advised to call surgeon office or pre surgery nurse liaison [phone] if any additional questions.
[2023-12-07] VITALS (14 sets, daily range): BP systolic 105–143; BP diastolic 64–84; PULSE 57–100; RESP 12–18; TEMP 36.2–37.1; O2SAT 95–100
--- NOTE | ~2023-12-07 | XR_ITS ---
EXAMINATION: XR fluoroscopy no charge DATE: 12/07/2023 10:20 INDICATION: L5-S1 interbody fusion. TECHNIQUE: A single lateral intraoperative fluoroscopic view of the lumbar spine was obtained. I was not present. Fluoroscopy exposure time was 14 seconds. COMPARISON: Lumbar spine radiographs 10/05/2023. FINDINGS: There are changes of anterior posterior fusion procedures at L5-S1 with interbody devices a nd pedicle screws. IMPRESSION: 1. Anterior and posterior fusion procedures at L5-S1. Reviewed, dictated and finalized at location A.
--- NOTE | 2023-12-07 07:18 | WPDANESEPPF ---
Anes - Initial Pre Proc Eval Procedure: Operation Date: 12/07/23 07:30 Proposed Procedures p L5-S1 Posterior Lumbar Interbody Fusion - Yousif Ching MD Date/Time: 12/07/23 07:18 Surgeon: Yousif Ching MD Pre Op Diagnosis: L5 pars defect and spondilithiasis Patient Data Age: 48 Gender: M Height: 1.91 m Weight: 111.4 kg Allergies Allergy/AdvReac Type Severity Reaction Status Date / Time No Known Allergies Allergy Verified 11/26/23 15:01 Home Medications Medication Instructions Recorded Confirmed Type fluoxetine 40 mg capsule (Prozac) 40 mg PO DAILY #90 caps 06/18/23 11/26/23 Rx amlodipine 10 mg-olmesartan 40 mg 1 tablet PO DAILY #30 tabs 09/16/23 11/26/23 Rx tablet rizatriptan 5 mg tablet 5 mg PO .COMPLEX #20 tabs 09/16/23 11/26/23 Rx topiramate 50 mg PO QHS 09/27/23 11/26/23 History metaxalone 800 mg tablet 800 mg PO QID PRN muscle pain #60 10/05/23 11/26/23 Rx tabs oxycodone-acetaminophen 5 mg-325 1 tablet PO TID PRN pain #20 tabs 11/23/23 11/26/23 Rx mg tablet Patient hx anesthesia problems: none Family hx anesthesia problems: none Results Review: All pre-operative results and documents have been reviewed as part of the pre-operative evaluation. [facility] Past Medical History Medical History Acute loss of vision Anxiety BMI 26.0-26.9,adult BMI 27.0-27.9,adult BMI 34.0-34.9,adult Bulging lumbar disc Lumbar spondylosis Migraine Numbness and tingling of both upper extremities Orbital fracture (~1989) surgical reconstruction with metal plates. Surgical History Surgical History Hx of facial fracture repair Family History Family History Father Heart disease Diabetes mellitus Hypertension Mother Depression Anxiety Sibling Migraine Social History Social History Social History: Caffeine- soda Smoking status: Never smoker Second hand tobacco smoke exposure: Yes Alcohol intake: never Substance use: never Substance use type: does not use Do You Feel Safe in your Home?: Yes Lack of Transportation: No Lack of Food: Never True Current Housing: I Have Housing Concerned About Future Housing: No Difficulty Paying Gas/Electric Bills: No Difficulty Paying for Meds: No Currently Unemployed: No Education: Master's Degree or Higher Difficulty w/ Childcare or Family Care: No Living arrangements: with family Occupation/Education: occupation Additional occupation/education comments: -[employer] Gender identity (if verbalized by the patient): Male Sexual Orientation (if Verbalized by the Patient): Straight or Heterosexual Spiritual care concerns: No Agree to blood products: Yes Anes - Eval Final PreProcedure Day of Procedure 12/07/23 07:18 Patient weight: overweight Heart: regular rate and rhythm Lungs: clear to auscultation Airway: Mallampati scale class II and special considerations poor opening Neurological: alert and oriented Last oral intake: >/= 8 hours ASA classification: II Emergent: no Anesthetic plan: proceed Anesthesia type and monitoring: general ETT and standard monitoring Results Review: All pre-operative results and documents have been reviewed as part of the pre-operative evaluation. Informed Consent: The patient's anesthetic plan and its attendant risks and benefits were discussed with the patient/family/POA. Questions were solicited and answers provided to the satisfaction of the patient/family/POA.
--- NOTE | 2023-12-07 07:54 | PM.IMHP ---
H&P: HPI History of Present Illness Date/Time: 12/07/23 07:54 Chief Complaint: back and leg pain Narrative: Tramaine is a 47-year-old male with a long-time history of intermittent back issues that have become acute and limiting since September 02. He developed discomfort in his back that radiates proximally and down the left lower extremity all the way to the foot. He notices weakness in his foot the longer he is up. This is weakness of lifting his foot or dorsiflexion. He is not been able to lift, bend or twist or do any strenuous activities since these events. He has numbness in the same distribution as the discomfort down to his foot. He does not have bowel or bladder difficulty. Activity seems to be worst and provocate the symptoms. he has not had any particular treatment such as pain management and physical therapy to this point for this episode. He was admitted to the hospital with the severe complaints a week or so ago. He is ambulatory but with pain. Review of Systems Review of Systems: Const Details: Const All systems reviewed & are unremarkable except as noted in HPI and below Denies chills, Denies fever(s), Denies weakness, Denies weight gain and Denies weight loss Eyes Denies change in vision and Denies diplopia ENT Denies neck pain and Denies disequilibrium Card Denies chest pain and Denies dyspnea Resp Denies cough and Denies dyspnea GI Denies abdominal pain, Denies change in bowel habits, Denies fecal incontinence and Denies vomiting Denies hematuria, Denies oliguria, Denies difficulty urinating, Denies dysuria, Denies urinary frequency, Denies urinary hesitancy, Denies urinary incontinence and Denies urinary urgency Musc Reports as per HPI, Reports back pain, Denies muscle weakness, Denies neck pain, Reports numbness and Denies stiffness Skin/ Breast Reports system reviewed and no additional complaints, except as documented Neuro Reports as per HPI, Denies burning sensations, Denies focal weakness, Reports numbness, Denies Other visual disturbances, Reports radicular pain, Reports paresthesias, Denies disequilibrium and Denies weakness Psych Reports no additional complaints, Denies depression and Denies hopelessness Endo Reports no additional complaints and Denies polyuria Dwayne/ Lymph Reports no additional complaints Aller/ Immun Reports no additional complaints PMFSH Past Medical History Medical History Acute loss of vision Anxiety BMI 26.0-26.9,adult BMI 27.0-27.9,adult BMI 34.0-34.9,adult Bulging lumbar disc Lumbar spondylosis Migraine Numbness and tingling of both upper extremities Orbital fracture (~1989) surgical reconstruction with metal plates. Surgical History Surgical History Hx of facial fracture repair Family History Family History Father Heart disease Diabetes mellitus Hypertension Mother Depression Anxiety Sibling Migraine Social History Social History Social History: Caffeine- soda Smoking status: Never smoker Second hand tobacco smoke exposure: Yes Alcohol intake: never Substance use: never Substance use type: does not use Do You Feel Safe in your Home?: Yes Lack of Transportation: No Lack of Food: Never True Current Housing: I Have Housing Concerned About Future Housing: No Difficulty Paying Gas/Electric Bills: No Difficulty Paying for Meds: No Currently Unemployed: No Education: Master's Degree or Higher Difficulty w/ Childcare or Family Care: No Living arrangements: with family Occupation/Education: occupation Additional occupation/education comments: [employer] Gender identity (if verbalized by the patient): Male Sexual Orientation (if Verbalized by the Patient): Straight or Heterosexu
--- NOTE | 2023-12-07 07:58 | WPDHPUPDATE1 ---
History and Physical Update Update Date/Time: 12/07/23 07:58 History and Physical has been reviewed, including an updated exam of the patient. There are NO changes in the patient's condition. Risks, benefits, and alternatives have been discussed and questions answered. Patient agrees to proceed with procedure.
[2023-12-07] MEDS: LACTATED RINGERS 1,000 ML 30 ML IV CONT ×2 (08:00→10:55)
[2023-12-07] MEDS: ceFAZolin 2 GM/D5W 50 ML 2 GM/50 ML BAG IVPB (08:02)
[2023-12-07] MEDS: LIDO 1%/EPINEPHRINE 1:100,000 20 ML VIAL 10 ML INFILTRATE (08:45)
--- NOTE | 2023-12-07 10:52 | W.PM.PROC2 ---
Procedure Note - Detailed Date of Procedure 12/07/23 Pre-op Diagnosis L5 pars defect and spondilithiasis Post-op Diagnosis Same Procedure Performed L5-S1 complete laminectomy and bilateral facetectomy, L5-S1 complete diskectomy and interbody arthrodesis utilizing titanium interbody devices and local autograft, L5-S1 pedicle screw instrumentation Surgeon Yousif Ching MD Anesthesia General Description of Procedure Patient was brought room in the supine position, was sedated, intubated placed under general anesthesia in routine fashion. He was then turned into the prone position on a Bogdan frame. The upper operation on his back was examined, marked for incision, prepped and draped in routine sterile fashion. Incision was marked over the L5 and S1 spinous processes in the midline. This area was injected with 0.5% lidocaine with [id number] epinephrine. Intravenous antibiotics given prior to incision. Incision was made with a 10 blade scalpel down to the lumbodorsal fascia. A subperiosteal dissection of the muscle soft tissue away from the spinous process and lamina at L5 and S1 for was performed with a subperiosteal elevator and Bovie cautery. A verifying x-rays obtained to verify the level of operation. The L5 spinous process was removed with a Wilmer rongeur. Kerrison punches, curved curette and a Yumikoell rongeur were used to remove the lamina in the midline and to the soft contents of the canal were encountered. The pars defect existed already on both sides. The facets were dissected away from the soft tissue in the inferior articular process and facet of L5 to be removed bilaterally. These +spinous process were stripped free of soft tissue and morselized for later use as interbody autograft. Kerrison punches and curved curettes were used to define plane with the dura and removed bone ligament flush with the pedicle and through the foramina widely decompressing the exiting nerve roots. With the thecal sac retracted and protected the disc space was entered bilaterally using an 11 blade scalpel. Scrapers a very sizes, curettes of various configurations, pituitary rongeur and a rasp were used to remove as much cartilaginous and disc material as possible down to bleeding cortical flat surfaces on the opposing bones. The disc space was incised in 11 mm interbody devices were chosen and filled with local autograft bone. The disc space was likewise filled with local autograft bone medially and anteriorly. The interbody devices were then placed 2-3 mm countersink within the disc space bilaterally. Pedicle screw instrumentation was performed at L5 and S1 by observing and palpating the pedicle while a hole was made superior to the process above the pedicle using a Midas Saleem drill. Pedicle was then cannulated with a pedicle probe, checked for continuity with the ball probe, tapped with 5.5 mm tap and a 6.5 x 50 mm screw was placed into each pedicle on each side. This was bicortical at the S1 level. Rods were placed in the screw heads on either side and secured in position using the caps that purpose. These were definitively tightened with a torque and anti torque device. The wound was then copiously irrigated with bacitracin irrigation all bleeding stopped with bipolar Bovie cautery and Gelfoam thrombin powder. A verifying x-rays obtained to verify the position of the instrumentation. A medium Hemovac drain was left in the subfascial position buried up inferior right of the incision. The wound was then closed in layered fashion with 2-0 Vicryl interrupted sutures in the lumbodorsal fascia and Carito's layer. 3-0 Vicryl buried interrupted sutures were placed in the dermis and the skin was closed with a running 4-0 Monocryl subcuticular stitch and dressed with Dermabond. Patient was allowed to wake up in the operating room and was taken to the recovery room in stable condition. There were no immediate complications of this operation. All coun
[2023-12-07] MEDS: fentaNYL CITRATE INJ (*CRX) 100 MCG/2 ML VIAL 25 MCG IV PUSH ×4 (11:31→11:49)
[2023-12-07] MEDS: HYDROmorphone HCL INJ (*CRX) 1 MG/ML SYR 0.5 MG IV PUSH ×2 (12:26→14:26)
[2023-12-07] MEDS: KCL 20 MEQ/D5/0.45% SOD CHL 1,000 ML 100 ML IV CONT (12:33)
--- NOTE | 2023-12-07 12:35 | ADMGEN ---
This patient, Tramaine Gonsalez, was admitted to 3 [facility] Surg Room 325-01. Patient/family oriented to hospital policies and general routines including ID bracelet, bed and alarms, visiting hours, pain management, procedures, bathroom and other care routines, personal items, smoking policy, room service/diet, and visiting hours. Information on how to activate the Rapid Response Team has been discussed. Patient/Family are encouraged to report perceived risks to care and to ask questions if they do not understand what they are told or what they should do.
[2023-12-07] MEDS: oxyCODONE/ACETAMINOPHEN (*CRX) 10-325 MG TABLET 1 TAB PO (16:56)
[2023-12-07] MEDS: ceFAZolin 1 GM/NS 50 ML 1 GM/50 ML BAG IVPB ×2 (16:58→23:14)
[2023-12-07] MEDS: HYDROmorphone HCL INJ (*CRX) 1 MG/ML SYR IV PUSH ×2 (18:02→21:29)
[2023-12-07] MEDS: TOPIRAMATE 25 MG TABLET 50 MG PO (21:26)
[2023-12-07] MEDS: DOCUSATE SODIUM 100 MG CAPSULE PO (21:26)
[2023-12-07] MEDS: KCL 20 MEQ/D5/0.45% SOD CHL 1,000 ML 50 ML IV CONT (23:14)
[2023-12-08 03:03] VITALS: BP 125/70; PULSE 75; RESP 12; TEMP 36.7; O2SAT 98
[2023-12-08] MEDS: HYDROmorphone HCL INJ (*CRX) 1 MG/ML SYR IV PUSH (04:15)
[2023-12-08] MEDS: oxyCODONE/ACETAMINOPHEN (*CRX) 10-325 MG TABLET 1 TAB PO ×4 (06:01→18:17)
[2023-12-08 07:03] VITALS: BP 117/67; PULSE 85; RESP 18; TEMP 36.6; O2SAT 100
[2023-12-08] MEDS: DOCUSATE SODIUM 100 MG CAPSULE PO (08:18)
[2023-12-08] MEDS: amLODIPine BESYLATE 5 MG TABLET 10 MG BY MOUTH (08:18)
[2023-12-08] MEDS: ceFAZolin 1 GM/NS 50 ML 1 GM/50 ML BAG IVPB ×2 (08:18→16:41)
[2023-12-08] MEDS: FLUoxetine HCL 20 MG CAPSULE 40 MG PO (08:18)
[2023-12-08] MEDS: OLMESARTAN MEDOXOMIL 20 MG TABLET 40 MG PO (08:18)
[2023-12-08 11:03] VITALS: BP 125/66; PULSE 99; RESP 20; TEMP 36.9; O2SAT 99
[2023-12-08 15:03] VITALS: BP 120/60; PULSE 98; RESP 18; TEMP 36.9; O2SAT 100
--- NOTE | 2023-12-08 17:20 | WPDNEUROSGPN ---
Progress Note: A&P Assessment and Plan (1) Status post lumbar spinal arthrodesis: Code(s): Z98.1 - Arthrodesis status Status: Acute Plan -Remove hemovac -Discharge home today -Wound care and activity precautions reviewed at bedside Subjective Date/time seen: 12/08/23 17:20 Interval history: Doing well with pain adequately controlled. Denies leg pain or paresthesias. Ambulated in halls. Tolerating PO, voiding independently. Would like to go home Review of Systems Review of Systems: All systems reviewed & are unremarkable except as noted in HPI and below Exam Narrative: AOx4 Full strength lower extremities Sensation intact Incision c/d/i Objective Data Vital Signs Vital Signs: Vital Signs - 24 hr 12/07/23 19:03 12/07/23 20:00 12/07/23 23:03 Temperature 98.5 F 98.0 F Pulse Rate 100 100 83 Respiratory Rate 14 14 12 Blood Pressure 119/70 124/77 Pulse Oximetry 99 99 99 Oxygen Delivery Room Air 12/08/23 03:03 12/08/23 08:18 12/08/23 07:03 Temperature 98.0 F 97.9 F Pulse Rate 75 85 Respiratory Rate 12 18 Blood Pressure 125/70 117/67 Pulse Oximetry 98 100 Oxygen Delivery Room Air 12/08/23 11:03 12/08/23 15:03 Temperature 98.4 F 98.4 F Pulse Rate 99 98 Respiratory Rate 20 18 Blood Pressure 125/66 120/60 Pulse Oximetry 99 100 Oxygen Delivery Intake/Output Intake/Output: Intake & Output 12/05/23 12/06/23 12/07/23 12/08/23 23:59 23:59 23:59 23:59 Intake Total 5240 660 Output Total 2245 Balance 2995 660 Meds/Results Medications: Active Medications Generic Name Dose Route Start Last Admin Trade Name Freq PRN Reason Stop Dose Admin Al Hydrox/Mg Hydrox/Simethicone 20 ml 12/07/23 12:03 Mag Hydrox/Al Hydrox/Simeth 30 Ml Udc PO Q4H PRN Indigestion/Heartburn Amlodipine Besylate 10 mg 12/08/23 09:00 12/08/23 08:18 Amlodipine Besylate 5 Mg Tablet BY MOUTH 10 mg DAILY SIMEON Administration Bisacodyl 10 mg 12/07/23 12:03 Bisacodyl 10 Mg Suppository RECTAL DAILY PRN Constipation Cyclobenzaprine HCl 10 mg 12/07/23 12:03 Cyclobenzaprine Hcl 10 Mg Tablet PO TID PRN Muscle Spasms Docusate Sodium 100 mg 12/07/23 21:00 12/08/23 08:18 Docusate Sodium 100 Mg Capsule PO 100 mg Q12HR SIMEON Administration Fluoxetine HCl 40 mg 12/08/23 09:00 12/08/23 08:18 Fluoxetine Hcl 20 Mg Capsule PO 40 mg DAILY SIMEON Administration Hydromorphone HCl 1 mg 12/07/23 16:44 12/08/23 04:15 Hydromorphone Hcl Inj (*Crx) 1 Mg/Ml Syr IV PUSH 1 mg Q2H PRN Administration Pain Rated 7-10 Cefazolin Sodium 1 gm in 50 mls @ 100 mls/hr 12/07/23 16:00 12/08/23 16:41 Ancef 1 Gm/Ns 50 Ml IVPB 100 mls/hr Q8H SIMEON Administration Potassium Chloride/Dextrose/Sod Cl 1,000 mls @ 100 mls/hr 12/07/23 12:03 12/07/23 23:14 Kcl 20 Meq/D5/0.45% Sod Chl IV CONT 50 mls/hr .Q10H SIMEON Administration Metaxalone 800 mg 12/07/23 12:03 Metaxalone 800 Mg Tablet PO QID PRN muscle pain Rizatriptan 5 Mg 5 mg 12/07/23 12:03 Tablet PO 01/06/24 12:02 PRN PRN MIGRAINE HEADACHE Olmesartan 40 mg 12/08/23 09:00 12/08/23 08:18 Olmesartan Medoxomil 20 Mg Tablet PO 40 mg QAM SIMEON Administration Ondansetron HCl 4 mg 12/07/23 12:03 Ondansetron Inj 4 Mg/2 Ml Vial IV PUSH Q8H PRN Nausea And Vomiting Oxycodone/Acetaminophen 1 tablet 12/07/23 12:03 Oxycodone/Acetaminophen (*Crx) 5-325 Mg Tablet PO Q4H PRN Mild Pain (1-3) Oxycodone/Acetaminophen 1 tab 12/07/23 12:03 12/08/23 14:31 Oxycodone/Acetaminophen (*Crx) 10-325 Mg Tablet PO 1 tab Q4H PRN Administration Pain of 4-10 Senna/Docusate Sodium 1 tab 12/07/23 12:03 Senna/Docusate Sodium Tablet PO HS PRN Constipation Topiramate 50 mg 12/07/23 21:00 12/07/23 21:26 Topiramate 25 Mg Tablet PO 50 mg QHS SIMEON Administration Radiology Results: ITS
== END 2023-12-08 18:25 | disposition home or self-care (01) ==
LOC: ANHSURGERY 06:55 → ANH3MEDSUR 13:08
PROVIDERS: PCP Family Medicine; Visit Provider Neurological Surgery
PROC: (CPT 22612; principal; 2023-12-07 07:30)
DX: M43.07 Spondylolysis, lumbosacral region (principal); M47.816 Spondylosis without myelopathy or radiculopathy, lumbar region; I10 Essential (primary) hypertension; F41.9 Anxiety disorder, unspecified
CPT/HCPCS: 22630; 22840; 20936; 36415; 80048; 81003; 85027; 85610; 85730; 86850; 86900; 86901; 93005; 97116; 97161; 97165; 97530; 97535; 99199; A9270; C1713; J0330; J0690; J1100; J1170; J2250; J2405; J2704; J3010; J3480; J7120

== ENCOUNTER 2024-01-25 12:48 | Outpatient (CLI) | payer OTHER, SELFPAY ==
--- NOTE | ~2024-01-25 | XR_ITS ---
EXAM: XR lumbar spine 2-3V DATE: 01/25/2024 13:02 HISTORY: F/U SURGERY FROM DECEMBER 06 . COMPARISON: 10/05/2023. FINDINGS: Posterior L5-S1 fusion, hardware intact. Interbody device in good position 5 nonrib-bearin g lumbar-type vertebral bodies. Pedicles intact. Stable grade 1 anterolisthesis at L5-S1. Vertebral b rudy heights preserved. Moderate disc space narrowing and marginal osteophytosis at L3-4. Normal facet s and posterior elements. No fracture or dislocation. IMPRESSION: Uncomplicated appearing L5-S1 posterior fusion. Moderate degenerative disc disease at L3- 4. Reviewed, dictated and finalized at location K. IMPRESSION: Uncomplicated appearing L5-S1 posterior fusion. Moderate degenerati ve disc disease at L3-4.
== END 2024-01-25 12:49 | disposition home or self-care (01) ==
PROVIDERS: PCP Family Medicine; Visit Provider Neurological Surgery
DX: M43.07 Spondylolysis, lumbosacral region (principal); M51.36 Other intervertebral disc degeneration, lumbar region
CPT/HCPCS: 72100

== ENCOUNTER 2024-02-12 22:45 | Emergency (ER) | payer OTHER, SELFPAY ==
--- NOTE | ~2024-02-12 | XR_ITS ---
EXAMINATION: XR chest 2V DATE: 02/12/2024 23:31 INDICATION: Chest pain. TECHNIQUE: Frontal and lateral views of the chest were obtained. COMPARISON: Chest CT 02/13/2024 FINDINGS: There is no pneumonia, pleural effusion, or pneumothorax. The heart size is normal. IMPRESSION: 1. No acute cardiopulmonary disease. Reviewed, dictated and finalized at location E.
--- NOTE | ~2024-02-12 | CT_ITS ---
EXAMINATION: CTA chest abdomen pelvis DATE: 02/13/2024 02:40 INDICATION: Midsternal chest tightness. TECHNIQUE: Computed tomographic angiography (CTA) of the chest, abdomen, and pelvis was performed wit h 100 mL Omnipaque-350 intravenous contrast. Automated exposure control and iterative reconstruction technique were employed. The dose-length product was 1258.07 mGy-cm. Maximum intensity projection 3D- reconstructions of the aorta and other arteries were constructed by the technologist on a separate wo rkstation. COMPARISON: None. FINDINGS: CHEST CTA: There is mild atelectasis in left lung. No pleural effusion. The heart size is normal. No pericardial effusion. Thoracic aorta is normal. There is mild thoracic spondylosis. There is mild chronic anteri or wedging of multiple vertebral bodies. ABDOMEN AND PELVIS CTA: The liver, gallbladder, spleen, pancreas, adrenal glands, and kidneys are normal. There are no dilate d loops of bowel. The appendix is normal. There are no pathologically enlarged lymph nodes. There is no free intraperitoneal fluid. 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 There is no significant stenosis of superior mesenteric artery, the renal arter ies, or inferior mesenteric artery. There are changes of anterior and posterior fusion procedures at L5-S1. There is moderate lumbar spondylosis. IMPRESSION: 1. Normal aorta. Reviewed, dictated and finalized at location E. IMPRESSION: 1. Normal aorta.
--- NOTE | 2024-02-12 22:46 | ECG_ITS ---
Test Date: 2024-02-12 22:51:45 Measurements Intervals [place] Rate: 69 P: 20 [place]: 156 QRS: 11 QRSD: 102 T: 2 QT: 380 QTc: 410 Interpretive Statements SINUS RHYTHM No previous ECG available for comparison Electronically Signed On 02-13-2024 13:43:58 CDT by Christian Mosqueda M.D.
[2024-02-12 23:02] VITALS: BP 120/62; PULSE 68; RESP 18; TEMP 36.3; O2SAT 97
[2024-02-12 23:07] LABS: Basophils Absolute Auto 0.1 K/mm3 (0.0-0.1); Basophils Percent Auto 1.1 % (0.2-1.2); Eosinophils Absolute Auto 0.2 K/mm3 (0-0.3); Eosinophils Percent Auto 3.4 % (0-4.4); Hematocrit 45.4 % (42.0-52.0); Hemoglobin 15.3 g/dL (14.0-18.0); Immature Granulocyte Absolute 0.02 K/mm3 (0.00-0.031); Immature Granulocyte Percent A 0.3 % (0-0.5); Lymphocytes Absolute Auto 2.54 K/mm3 (0.9-3.2); Lymphocytes Percent Auto 35.8 % (18.3-44.2); Mean Corpuscular HGB Conc 33.7 g/dl (32-36); Mean Corpuscular Hemoglobin 29.9 pg (26-34); Mean Corpuscular Volume 88.8 fl (80-100); Mean Platelet Volume 9.4 fl (7.4-10.4); Monocytes Absolute Auto 0.6 K/mm3 (0.1-0.6); Monocytes Percent Auto 8.6 % (2.6-8.5); Neutrophils Absolute Auto 3.6 K/mm3 (1.3-6.7); Neutrophils Percent Auto 50.8 % (45.5-73.1); Platelet Count Result 314 k/mm3 (150-375); Red Blood Count 5.11 M/mm3 (4.6-6.20); Red Cell Distribution Width 12.8 % (11.5-14.5); White Blood Count 7.1 K/mm3 (4.5-10.0)
[2024-02-12 23:17] LABS: Prothrombin Time 13.2 Seconds (11.1-14.7)
[2024-02-12 23:18] LABS: Partial Thromboplastin Time 21.9 Seconds (22.3-36.8)
[2024-02-12 23:23] LABS: Alanine Aminotransferase 40 U/L (6-50); Albumin Level 4.4 g/dL (3.5-5.1); Alkaline Phosphatase 48 U/L (38-126); Anion Gap 14 mmol/L (4-12); Aspartate Amino Transferase 30 U/L (17-59); Bilirubin,Total 0.3 mg/dL (0.2-1.3); Blood Urea Nitrogen 15 mg/dL (9-20); Calcium 8.6 mg/dL (8.4-10.2); Carbon Dioxide 20 mmol/L (22-30); Chloride 101 mmol/L (98-107); Estimated CRCL calculation 86 ml/min; Estimated Glomerular Filt Rate 59; Glucose 115 mg/dL (65-110); Lipase 142 U/L (23-300); Potassium 3.6 mmol/L (3.4-5.0); Sodium 135 mmol/L (137-145)
[2024-02-12 23:34] LABS: Troponin I < 0.012 ng/mL (0.000-0.034)
[2024-02-13] VITALS (16 sets, daily range): BP systolic 114–147; BP diastolic 67–84; PULSE 49–72; RESP 11–23; O2SAT 96–100
--- NOTE | 2024-02-13 02:07 | ECG_ITS ---
Test Date: 2024-02-13 02:12:44 Measurements Intervals [place] Rate: 58 P: 40 [place]: 148 QRS: 28 QRSD: 102 T: 12 QT: 403 QTc: 397 Interpretive Statements SINUS BRADYCARDIA Compared to ECG 02/12/2024 22:51:45 Sinus rhythm no longer present Electronically Signed On 02-13-2024 13:46:00 CDT by Christian Mosqueda M.D.
[2024-02-13 02:08] LABS: Troponin I < 0.012 ng/mL (0.000-0.034)
[2024-02-13] MEDS: ASPIRIN 81 MG CHEWABLE TABLET 324 MG PO (02:14)
--- NOTE | 2024-02-13 06:34 | ED.CHESTPAIN ---
HPI - Chest Pain General Chief Complaint: Chest Pain Stated Complaint: chest tightness Time Seen by Provider: 02/13/24 01:20 History of Present Illness HPI narrative: Patient presents with chest discomfort that has been intermittent for the last 2 days. Assisted with some mild nausea and shortness of breath, no focal numbness or weakness, has not had symptoms like this before, but his dad did have heart attack when he was younger and he is slightly anxious about this. Does have a h/o anxiety. Related Data Home Medications Medication Instructions Recorded Confirmed topiramate 50 mg PO QHS 09/27/23 11/26/23 Allergies Allergy/AdvReac Type Severity Reaction Status Date / Time No Known Allergies Allergy Verified 02/13/24 02:20 Review of Systems Review of Systems: All systems reviewed & are unremarkable except as noted in HPI and below PMFSH Past Medical History Medical History Acute loss of vision Anxiety BMI 26.0-26.9,adult BMI 27.0-27.9,adult BMI 34.0-34.9,adult Bulging lumbar disc Lumbar spondylosis Migraine Numbness and tingling of both upper extremities Orbital fracture (~1989) surgical reconstruction with metal plates. Surgical History Surgical History Hx of facial fracture repair Family History Family History Father Heart disease Diabetes mellitus Hypertension Mother Depression Anxiety Sibling Migraine Social History Social History Social History: Caffeine- soda Smoking status: Never smoker Second hand tobacco smoke exposure: Yes Alcohol intake: never Substance use: never Substance use type: does not use Do You Feel Safe in your Home?: Yes Lack of Transportation: No Lack of Food: Never True Current Housing: I Have Housing Concerned About Future Housing: No Difficulty Paying Gas/Electric Bills: No Difficulty Paying for Meds: No Currently Unemployed: No Education: Master's Degree or Higher Difficulty w/ Childcare or Family Care: No Living arrangements: with family Occupation/Education: occupation Additional occupation/education comments: [employer] Gender identity (if verbalized by the patient): Male Sexual Orientation (if Verbalized by the Patient): Straight or Heterosexual Spiritual care concerns: No Agree to blood products: Yes Exam Narrative: EXAMINATION OF ORGAN SYSTEMS/BODY AREAS: Constitutional: Vital signs per nursing GENERAL:[No acute distress, non-toxic appearing.] HEAD: Normal with no signs of head trauma. EYES: EOMI, conjunctiva normal ENT: Hearing grossly intact LUNGS: Nonlabored breathing. HEART: [Regular rate and rhythm] ABD: [Soft], [nontender to palpation] EXT: Normal range of motion SKIN: [No rashes or lesions.] NEURO: [Alert and oriented x 3. No gross focal sensory or strength deficits.] PSYCH: Normal affect Course Vital Signs Vital signs: Vital Signs Temperature 97.3 F L 02/12/24 23:02 Pulse Rate 68 02/12/24 23:02 Respiratory Rate 18 02/12/24 23:02 Blood Pressure 120/62 02/12/24 23:02 Pulse Oximetry 97 02/12/24 23:02 Temperature 97.3 F L 02/12/24 23:02 Pulse Rate 50 L 02/13/24 04:35 Respiratory Rate 18 02/13/24 04:35 Blood Pressure 114/67 02/13/24 04:35 Pulse Oximetry 98 02/13/24 04:35 Oxygen Delivery Room Air 02/13/24 02:18 MDM - Chest Pain MDM Narrative Medical decision making narrative: ED COURSE AND MEDICAL DECISION MAKIN-year-old presenting with chest pain. EKG done in triage negative for acute ischemic changes. Cardiac workup is initiated. EKG: Performed in triage and interpreted by me. Normal sinus rhythm. Rate 50. Normal axis. SC normal. QRS duration normal. QTc normal. No pathologic Q wave
== END 2024-02-13 04:41 | disposition home or self-care (01) ==
PROVIDERS: Emergency Provider Emergency Medicine; PCP Family Medicine
DX: R07.9 Chest pain, unspecified (principal); R11.0 Nausea
CPT/HCPCS: 36415; 71046; 71275; 74174; 80053; 83690; 84484; 85025; 85610; 85730; 93005; 99284; A9270; Q9967

== ENCOUNTER 2025-05-23 15:21 | Emergency (ER) | payer OTHER, SELFPAY ==
--- OUTSIDE RECORDS SUMMARY | 2023-12-18 15:30 | XMS_ITS ---
Author Organization [facility] [employer] [facility] [employer] [place] ([address]) Address [address] [place] [address] Care Team Providers Care Photovoltaic Fabrication Technician Name Role Phone Austen PRATT, Mahendra Primary Care Provider Unavaila Dr. Roel Flaherty Unavailable [phone] ZZ-Migration, Provider Unavailable Unavailab le REASON FOR VISIT Multum To Medispan Conversion Encounter Medications Medication SIG (Take, Route, Frequency, Duration) Notes Start Date End Date Status Rizatriptan Benzoate 5 MG 1 tab(s) orally once a day Active Topiramate 25 MG 1 tab at bedtime x 1 week, then 2 tabs at bedtime x 1 week, then 3 tabs at bedtime orally as directed; Duration: 30 days 09/20/2023 Active Methocarbamol *Please review a nd pick correct strength-formulatio n from Medispan options. If intended option is not shown, discontinue and re-order from Quick Search* Active FLUoxetine HCl 40 MG 1 cap(s) orally once a day Active amLODIPine Besylate 10 MG 1 tab(s) orally once a day Active Encounters Encounter Location Date Provider Diagnosis [facility] [place] [address] 12/18/2023 Provider ZZ-Migration Chronic migraine without aura, not intractable, without status migrainosus G43.709 Assessments Encounter Date Diagnosis (ICD Code) Assessment Notes Treatment Notes Treatment Clinical Notes Section Notes 12/18/2023 Chronic migraine without aura, not intractable, without status migrainosus (ICD-10 - G43.709) Plan Of Treatment Medication Medication Name Sig Start Date Stop Date Notes Topiramate 25 MG 1 tab at bedtime x 1 week, then 2 tabs at bedtime x 1 week, then 3 tabs at bedtime orally as directed; Duration: 30 days 09/20/2023 Progress Notes * Tramaine SCHAEFERDOB: [birth year] (49 yo M)Acc No.[id number]:12/18/2023 Patient: Tramaine KIM Provider: Brinda Light :1975 A ge:48 Y S ex:Male Date:12/18/2023 Address:[address] [place], [place] [id number] Pcp:Mahendra Boyce MD Subjective: * Chief Complaints: * 1 . Multum To Medispan Conversion Encounter. * Medical History: * Medications: T aking Methocarbamol , Notes to Pharmacist: *Please review and pick correct strength-formulation from Medispan options. If intended option is not shown, discontinue and re-order from Quick Search*, Taking FLUoxetine HCl 40 MG Capsule 1 cap(s) orally once a day , Taking amLODIPine Besylate 10 MG Tablet 1 tab(s) orally once a day , Taking Rizatriptan Benzoate 5 MG Tablet 1 tab(s) orally once a day Objective: * Vitals: Assessment: * Assessment: 1. C hronic migraine without aura, not intractable, without status migrainosus - G43.709 (Primary) Plan: * Treatment: * Billing Information: * Visit Code: * Procedure Codes: * Electronic signature of Daina bassett ZZ-Migration on 05/24/2025 at 01:49 AM SUPERINTENDENT GREENS Sign off status: Pending * Provider: Brinda Light Date: 0 12/18/2023 Generated for Martina lomeli/Andria/Julisa on: 07/24/2024 01:49 AM SUPERINTENDENT GREENS
--- OUTSIDE RECORDS SUMMARY | 2023-12-18 15:30 | XMS_ITS ---
Author Organization [facility] [employer] [facility] [employer] [place] ([address]) Address [address] [place] [address] Care Team Providers Care Dinkey Skinner Name Role Phone Austen PRATT, Mahendra Primary Care Provider Unavaila Dr. Roel Flaherty Unavailable [phone] ZZ-Migration, Provider Unavailable Unavailab le REASON FOR [...] Encounter Location Date Provider Diagnosis [facility] [place] [address] 12/18/2023 Provider ZZ-Migration Chronic migraine without aura, [...] * Tramaine SCHAEFERDOB: [birth year] (49 yo M)Acc No.[id number]:12/18/2023 Patient: Tramaine KIM Provider: Brinda Light :1975 A ge:48 Y S ex:Male Date:12/18/2023 Address:[address] [place], [place] [id number] Pcp:Mahendra Boyce MD Subjective: * Chief Complaints: [...] * Procedure Codes: * Electronic signature of Prov ruddyr ZZ-Migration on 05/23/2025 at 11:38 PM DRILLING FIELD OPERATOR Sign off status: Pending * Provider: Brinda Light Date: 0 12/18/2023 Generated for Martina lomeli/Andria/Julisa on: 07/23/2024 11:38 PM DRILLING FIELD OPERATOR
[2025-05-23 15:53] VITALS: BP 121/69; PULSE 84; RESP 17; TEMP 36.4; O2SAT 100
--- NOTE | 2025-05-23 17:08 | ED.GENADULT ---
HPI - General Adult General Chief complaint: Headache <MARKY Bryant - Last Filed: 05/23/25 17:16> Stated complaint: migraine <MARKY Bryant - Last Filed: 05/23/25 17:16> Time Seen by Provider: 05/23/25 18:32 <MARKY Bryant - Last Filed: 05/23/25 17:16> Focused HPI: 49 year old male presenting with migraine with symptoms of blurred vision/floating spots and pain and tingling around his right eye. Reports sensitivity to light but not sound, nausea/vomiting yesterday and today which has since resolved, no recent illness or trauma. Took rizatriptan earlier with no relief. Has a significant history of migraines. GENERAL: Well-appearing, well-nourished, and in no acute distress. HEAD: Normocephalic, atraumatic. CHEST: Clear to auscultation. ?No respiratory distress. HEART: Regular rate and rhythm.? NEURO: ?Alert and oriented x3. Patient screened in triage and initial orders placed.? ?Additional care and disposition to be based upon?diagnostic testing and treatment. <MARKY Bryant - Last Filed: 05/23/25 17:16> Related Data Home medications: Home Medications ?Medication ?Instructions ?Recorded ?Confirmed ?Last Taken ?Type topiramate 50 mg PO QHS 09/27/23 11/26/23 Unknown History <MARKY Bryant - Last Filed: 05/23/25 17:16> Allergies/adverse reactions: Allergies Allergy/AdvReac Type Severity Reaction Status Date / Time No Known Allergies Allergy Verified 05/23/25 13:33 <MARKY Bryant - Last Filed: 05/23/25 17:16> PMFSH Past Medical History Medical History: Medical History BMI 34.0-34.9,adult Orbital fracture (~1989) surgical reconstruction with metal plates. Migraine Numbness and tingling of both upper extremities Acute loss of vision Lumbar spondylosis Bulging lumbar disc BMI 26.0-26.9,adult Anxiety BMI 27.0-27.9,adult <MARKY Bryant - Last Filed: 05/23/25 17:16> Surgical History Surgical History: Surgical History Hx of facial fracture repair <MARKY Bryant - Last Filed: 05/23/25 17:16> Family History Family History: Family History Father Heart disease Diabetes mellitus Hypertension Mother Depression Anxiety Sibling Migraine <MARKY Bryant - Last Filed: 05/23/25 17:16> Social History Social History: Social History Social History: Caffeine- soda Smoking status: Never smoker Second hand tobacco smoke exposure: Yes Alcohol intake: never Substance use: never Substance use type: does not use Do You Feel Safe in your Home?: Yes Lack of Transportation: No Lack of Food: Never True Current Housing: I Have Housing Concerned About Future Housing: No Difficulty Paying Gas/Electric Bills: No Difficulty Paying for Meds: No Currently Unemployed: No Education: Master's Degree or Higher Difficulty w/ Childcare or Family Care: No Living arrangements: with family Occupation/Education: occupation Additional occupation/education comments: [employer] Gender identity (if verbalized by the patient): Male Sexual Orientation (if Verbalized by the Patient): Straight or Heterosexual Spiritual care concerns: No Agree to blood products: Yes <MARKY Bryant - Last Filed: 05/23/25 17:16> Course Vital Signs Vital signs: Vital Signs Temperature 97.6 F 05/23/25 15:53 Pulse Rate 84 05/23/25 15:53 Respiratory Rate 17 05/23/25 15:53 Blood Pressure 121/69 05/23/25 15:53 Pulse Oximetry 100 05/23/25 15:53 Oxygen Delivery Room Air 05/23/25 15:53 Temperature 97.6 F 05/23/25 15:53 Pulse Rate 60 05/23/25 20:42 Respiratory Rate 16 05/23/25 20:42 Blood Pressure 128/86 05/23/25 20:42 Pulse Oximetry 100 05/23/25 20:42 Oxygen Delivery Room Air 05/23/25 15:53 <MARKY Bryant - Last Filed: 05/23/25 17:16> Vital Signs Temperature 97.6 F 05/23/25 15:53 Pulse Rate 84 05/23/25 15:53 Respiratory Rate 17 05/23/25 15:53 Blood Pressure 121/69 05/23/25 15:53 Pulse Oximetry 100 05/23/25 15:53 Oxygen Delivery Room Air 05/23/25 15:53 Temperature 97.6 F 05/23/25 15:53 Pulse Rate 60 05/23/25 20:42 Respiratory Rate 16 05/23/25 20:42 Blood Pressure 128/86 05/23/25 20:42 Pulse Oximetry 100 05/23/25 20:42 Oxygen Delivery Room Air 05/23/25 15:53 <Chris Hernández MD - Last Filed: 05/23/25 21:57> Medical Decision Making MDM Narrative Medical decision making narrative: 49-year-old male presents to the emergency department for evaluation for migraine headache. Patient has been out of his topiramate for the last few months. Patient attempt to get follow-up with his primary care physician but was unable to get a medication refill. Patient states these headache symptoms are similar to his previous headaches. Patient states the headache is more intense than usual. Patient was also placed on oxygen by rebreather to help for possible cluster headache. Patient has superior made prescription was refilled. Patient was comfortable the plan to have close follow-up with primary care physician. <Chris Hernández MD - Last Filed: 05/23/25 21:57> Differential Diagnosis Differential Diagnosis: Some subdural hematoma, subarachnoid hemorrhage, headache, migraine, cluster headache <Chris Hernández MD - Last Filed: 05/23/25 21:57> Vital Signs Vital Signs: Vital Signs Temperature 97.6 F 05/23/25 15:53 Pulse Rate 84 05/23/25 15:53 Respiratory Rate 17 05/23/25 15:53 Blood Pressure 121/69 05/23/25 15:53 Pulse Oximetry 100 05/23/25 15:53 Oxygen Delivery Room Air 05/23/25 15:53 Temperature 97.6 F 05/23/25 15:53 Pulse Rate 60 05/23/25 20:42 Respiratory Rate 16 05/23/25 20:42 Blood Pressure 128/86 05/23/25 20:42 Pulse Oximetry 100 05/23/25 20:42 Oxygen Delivery Room Air 05/23/25 15:53 <MARKY Bryant - Last Filed: 05/23/25 17:16> Vital Signs Temperature 97.6 F 05/23/25 15:53 Pulse Rate 84 05/23/25 15:53 Respiratory Rate 17 05/23/25 15:53 Blood Pressure 121/69 05/23/25 15:53 Pulse Oximetry 100 05/23/25 15:53 Oxygen Delivery Room Air 05/23/25 15:53 Temperature 97.6 F 05/23/25 15:53 Pulse Rate 60 05/23/25 20:42 Respiratory Rate 16 05/23/25 20:42 Blood Pressure 128/86 05/23/25 20:42 Pulse Oximetry 100 05/23/25 20:42 Oxygen Delivery Room Air 05/23/25 15:53 <Chris Hernández MD - Last Filed: 05/23/25 21:57> Lab Data Lab results reviewed: Yes I reviewed the patient's lab results. <Chris Hernández MD - Last Filed: 05/23/25 21:57> Discharge Plan Discharge Clinical Impression: Headache <MARKY Bryant - Last Filed: 05/23/25 17:16> Patient Disposition: Home <MARKY Bryant - Last Filed: 05/23/25 17:16> Condition: Stable <MARKY Bryant - Last Filed: 05/23/25 17:16> Instructions: Antibiotic Form, Cluster Headache (ED), Head Injury (ED) <MARKY Bryant - Last Filed: 05/23/25 17:16> Additional Instructions: Have close follow-up with your primary care physician. Home medications as directed. If you have any worsening symptoms then please call or return to the emergency department. <MARKY Bryant - Last Filed: 05/23/25 17:16> Patient Language: Malaysian <MARKY Bryant - Last Filed: 05/23/25 17:16> Prescriptions: New topiramate 25 mg tablet 25 mg PO DAILY Qty: 42 0RF Rx Instructions: TAKE 1 TABLET BY MOUTH AT BEDTIME FOR 1 WEEK THEN TAKE 2 TABLETS AT BEDTIME FOR 1 WEEK THEN TAKE 3 TABLETS AT BEDTIME FOR 30 DAYS DIRECTED No Action topiramate 50 mg PO QHS metaxalone 800 mg tablet 800 mg PO QID PRN (Reason: muscle pain) Qty: 60 2RF rizatriptan 5 mg tablet 5 mg PO .COMPLEX Qty: 20 0RF Rx Instructions: 5 mg orally - administer on the first day of migrane fluoxetine [Prozac] 40 mg capsule 40 mg PO DAILY Qty: 90 1RF amlodipine-olmesartan 10-40 mg tablet 1 tablet PO DAILY Qty: 30 6RF <MARKY Bryant - Last Filed: 05/23/25 17:16> Follow-up/Referrals: Mahendra Boyce MD [Primary Care Provider, Family Practice] <MARKY Bryant - Last Filed: 05/23/25 17:16> Stand Alone Forms: Work/School Release IP <MARKY Bryant - Last Filed: 05/23/25 17:16>
[2025-05-23] MEDS: ONDANSETRON HCL ODT 4 MG TABLET PO (18:22)
[2025-05-23] MEDS: diphenhydrAMINE HCl CAP 25 MG CAPSULE PO (18:22)
[2025-05-23] MEDS: KETOROLAC 10 MG TABLET PO (18:22)
[2025-05-23 18:27] VITALS: BP 125/81; PULSE 71; RESP 18; O2SAT 98
[2025-05-23] MEDS: LACTATED RINGERS 1,000 ML 999 ML IV CONT (19:16)
--- NOTE | 2025-05-23 19:19 | PC.NURSE ---
Pt. placed on a non-rebreather at 15L per Dr. Hernández verbal instruction as an intervention to help with the cluster headache. Pt. respiratory status was WNL prior to placement of non-rebreather.
--- NOTE | 2025-05-23 20:01 | PC.NURSE ---
Non-rebreather removed. Pt. states I feel a lot better. Rates cluster headache in R. eye 10/[address] Hernández updated.
[2025-05-23 20:42] VITALS: BP 128/86; PULSE 60; RESP 16; O2SAT 100
--- OUTSIDE RECORDS SUMMARY | 2025-05-23 23:38 | XMS_ITS | Clinical Summary ---
Author Organization [facility] [place] [facility] [address] Address [address] [place] [phone] Care Team Providers Care Yarn Carrier Name Role Phone Unknown, Notinfile Primary Care Provider Unavail able Allergies No known active allergies Medications amlodipine-olmesa rtan (CARMELO) 10-40 mg per tablet Take 1 tablet by mouth daily 06/05/20 24 Active clobetasoL (TEMOVATE) 0.05 % external solution APPLY TO AFFECTED AREAS OF SCALP AND EARS 1-2 TIMES DAILY FOR UP TO 2 CONSECUTIVE WEEKS AT A TIME 11/24/19 25 Active fluconazole (DIFLUCAN) 100 mg tablet Take 1 tablet (100 mg total) by mouth daily 01/18/20 25 Active testosterone cypionate (DEPO-TESTOTERONE ) 200 mg/mL injection INJECT 1.25ML (250MG) INTRAMUSCULARLY WEEKLY DIRECTED 11/04/19 25 Active topiramate (TOPAMAX) 25 mg tablet TAKE 1 TABLET BY MOUTH AT BEDTIME FOR 1 WEEK THEN TAKE 2 TABLETS AT BEDTIME FOR 1 WEEK THEN TAKE 3 TABLETS AT BEDTIME FOR 30 DAYS DIRECTED 12/19/19 25 Active FLUoxetine (PROzac) 40 mg capsule Take 1 capsule (40 mg total) by mouth daily Active rizatriptan EXAMINATION PROCTOR (MAXALT-EXAMINATION PROCTOR) 10 mg disintegrating tabletIndications :Migraine Take 1 tablet (10 mg total) by mouth once as needed for migraine May repeat in 2 hours if unresolved. Do not exceed 30 mg in 24 hours. Active Active Problems Problem Noted Date Diagnosed Date Elbow pain 05/06/2016 Pain in shoulder 04/30/2016 Encounters Date Type Department Care Team Description 02/26/2025 7:15 PM CDT Office Visit [facility] at [address] [phone] Delia Sanches NP Rash and nonspecific skin eruption (Primary Dx); Achilles tendon pain; Bilateral leg pain from Last 3 Months Medical History Medical History Date Comments Hypertension Family History Medical History Relation Name Comments Arthritis Father Family history of arthritis - (Added by TW Conv) Lung disease Father Family history of lung disease - (Added by TW Conv) Relation Name Status Comments Father Social History Tobacco Use Types Packs/Day Years Used Date Smoking Tobacco: Never Sex and Gender Information Value Date Recorded Sex Assigned at Not on file 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 Gender Identity Not on file Sexual Orientation Not on file Last Filed Vital Signs Vital Sign Reading Time Taken Comments Blood Pressure 128/68 02/26/2025 7:06 PM CDT Pulse 85 02/26/2025 7:06 PM CDT Temperature 36.4 C (97.6 F) 02/26/2025 7:06 PM CDT Respiratory Rate 20 02/26/2025 7:06 PM CDT Oxygen Saturation 97% 02/26/2025 7:06 PM CDT Inhaled Oxygen Concentration - - Weight 121.1 kg (267 lb) 02/26/2025 7:06 PM CDT Height - - Body Mass Index - - Plan of Treatment Health Maintenance Due Date Last Done Comments Colon Cancer Screening-Colonoscopy 1976 Depression Screening 1976 Hepatitis C Screening 1976 Hepatitis B Screening 1994 Regular Well Visit/Exam 18-64 1994 Covid-19 Vaccine ( - 2024-2 6 season) 2025 06/23/2021, 09/10/2020, 08/20/2020 Influenza Vaccine (#1) 2025 DTaP/Tdap/Td Vaccine (3 - Td or Tdap) 11/30/2033 12/01/2023, 01/27/2016 Pneumococcal vaccine <65 Aged Out No longer eligible based on patient's age to complete this topic Insurance [facility] CHOICE PLUS [place] [id number] Care Teams Yarn Carrier Relationship Specialty Start Date End Date Unknown, Notinfile PCP - General 06/18/24
--- OUTSIDE RECORDS SUMMARY | 2025-05-23 23:38 | XMS_ITS | Patient Health Record ---
Author Organization [facility] [place] ([address]) Address [address] [place] [address] Care Team Providers Care Implementation Director Name Role Phone Austen PRATT, Mahendra Primary Care Provider UnavailDr. Roel Cummings Unavailable [phone] Allergies No Known Allergies Reason For Referral No Information Medications Medication SIG (Take, Route, Frequency, Duration) Notes Start Date End Date Status TOPIRAMATE 25 mg 1 tab at bedtime x 1 week, then 2 tabs at bedtime x 1 week, then 3 tabs at bedtime orally as directed; Duration: 30 days 09/20/2023 Active RIZATRIPTAN 5 mg 1 tab(s) orally once a day Active AMLODIPINE 10 mg 1 tab(s) orally once a day Active FLUOXETINE 40 mg 1 cap(s) orally once a day Active METHOCARBAMOL Active Topiramate 25 MG 3 tabs orally at bedtime; Duration: 90 days 09/20/2023 Active Methocarbamol *Please review a nd pick correct strength-formulatio n from Medispan options. If intended option is not shown, discontinue and re-order from Quick Search* Active FLUoxetine HCl 40 MG 1 cap(s) orally once a day Active amLODIPine Besylate 10 MG 1 tab(s) orally once a day Active Rizatriptan Benzoate 10 MG 1 tablet orally once, may repeat x1 after 2-4 hours; Duration: 30 days As needed for migraine Active Social History Tobacco Use: Social History Observation Description Date Details (start date - stop date) Never Smoker NA - NA Smoking Smart Form: Question Answer Notes Are you a: never smoker Problems Problem Type SNOMED Code ICD Code Onset Dates Problem Status W/U Status Risk Notes Problem Chronic migraine without aura, non-intractable (763927342105673) Chronic migraine without aura, not intractable, without status migrainosus (G43.709) Active confirmed Problem Drug induced headache (198101824916550) Drug-induced headache, not elsewhere classified, not intractable (G44.40) Active confirmed Problem Visual Disturbance (85391328) Other visual disturbances (H53.8) Active confirmed Problem Displacement of lumbar intervertebral disc without myelopathy (98282651) Other intervertebral disc displacement, lumbosacral region (M51.27) Active confirmed Problem Degeneration of lumbar intervertebral disc (70140196) Other intervertebral disc degeneration, lumbar region (M51.36) Active confirmed Encounters Encounter Location Date Provider Diagnosis [facility] [address] [place] [id number] 07/31/2024 Roel Swan Plan Of Treatment Pending Test Test Name Order Date MRA: Head, w/o contrast 09/20/2023 MRI : Brain (with and without gadolinium ) 09/20/2023 MRA neck, with and without contrast 09/02 Insurance Providers Payer Name Payer Address Payer Phone Subscriber Number Group Number Insured Name Patient Relationship to Insured Coverage Start Date Coverage End Date [facility] [address] [address] [place] [address] [phone] [id number] Tramaine Evans Self - patient is the insured 3 Medical (General) History Medical History History ICD Code HTN Migraine Depression Remote h/o right orbital fracture s/p pl ate
--- OUTSIDE RECORDS SUMMARY | 2025-05-23 23:38 | XMS_ITS | Clinical Summary ---
Author Organization [facility] Address [facility] [place] [address] Care Team Providers Care Traffic Attendant Name Role Phone None, Provider MD Primary Care Provider Unavaila ble Allergies No known active allergies Medications oxyCODONE-acetam inophen (PERCOCET) 5-325 MG tabletIndication s:Acute Pain < 7 Day Supply Take 1 tablet by mouth every 4 (four) hours as needed for Pain. 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 Gender Identity Not on file Sexual Orientation Not on file Last Filed Vital Signs Vital Sign Reading Time Taken Comments Blood Pressure 154/99 09/15/2023 11:53 PM CDT Pulse 68 09/15/2023 11:11 PM CDT Temperature 36.6 C (97.9 F) 09/15/2023 9:07 PM CDT Respiratory Rate 18 09/15/2023 11:11 PM CDT Oxygen Saturation 97% 09/15/2023 11:11 PM CDT Inhaled Oxygen Concentration - - Weight 117.9 kg (260 lb) 09/15/2023 9:08 PM CDT Height 188 cm (6' 2) 09/15/2023 9:08 PM CDT Body Mass Index 33.38 09/15/2023 9:08 PM CDT Plan of Treatment Health Maintenance Due Date Last Done Comments Colorectal Cancer Screening Colonoscopy (10 Years) 1976 Annual Physical 11/17/1979 Hepatitis C 1994 Hepatitis B Vaccines (1 of 3 - 19+ 3-dose series) 11/17/1995 COVID-19 Vaccine ( - 2024-2 6 season) 2025 06/23/2021, 09/10/2020, 08/20/2020 Influenza Adult (#1) 2025 DTaP, Tdap and Td Vaccines ( 2 - Td or Tdap) 01/26/2026 01/27/2016 Hepatitis A Vaccines Aged Out No long er eligible based on patient's age to complete this topic Meningococcal B Vaccine Aged Out No l onger eligible based on patient's age to complete this topic Meningococcal Vaccine Aged Out No marcia angelica eligible based on patient's age to complete this topic Pneumococcal Vaccine: Pediatrics (0 to 5 Years) and At-Risk Patients (6 to 49 Years) Aged Out No longer eligible b ased on patient's age to complete this topic RSV Immunizations Under 20 Months Aged Out No longer eligible b ased on patient's age to complete this topic Insurance [facility] Care Teams Traffic Attendant Relationship Specialty Start Date End Date None, Provider, PCP - General UNKNOWN PHYSICIAN SPECIALTY 09/15/23
--- OUTSIDE RECORDS SUMMARY | 2025-05-24 01:50 | XMS_ITS | Clinical Summary ---
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
--- OUTSIDE RECORDS SUMMARY | 2025-05-24 01:50 | XMS_ITS | Patient Health Record ---
Author Organization [facility] [place] ([address]) Address [address] [place] [address] Care Team Providers Care Hide Mill Worker Name Role Phone Austen PRATT, Mahendra Primary Care Provider UnavailDr. Roel Cummings Unavailable [phone] Allergies No Known Allergies Reason For Referral [...] Notes Problem Chronic migraine without aura, non-intractable (146019712536372) Chronic migraine without aura, not intractable, without status migrainosus (G43.709) Active confirmed Problem Drug induced headache (642656397550720) Drug-induced headache, not elsewhere classified, not intractable (G44.40) Active confirmed Problem Visual Disturbance (25774900) Other visual disturbances (H53.8) Active confirmed Problem Displacement of lumbar intervertebral disc without myelopathy (27403820) Other intervertebral disc displacement, lumbosacral region (M51.27) Active confirmed Problem Degeneration of lumbar intervertebral disc (44972517) Other intervertebral disc degeneration, lumbar region (M51.36) Active confirmed Encounters Encounter Location Date Provider Diagnosis [facility] [address] [place] [id number] 07/31/2024 Roel Swan Plan Of Treatment Pending Test Test Name Order Date MRA: Head, w/o contrast 09/20/2023 MRI : Brain (with and without gadolinium ) 09/20/2023 MRA neck, with and without contrast 09/02 Insurance Providers Payer Name Payer Address Payer Phone Subscriber Number Group Number Insured Name Patient Relationship to Insured Coverage Start Date Coverage End Date [facility] [address] [address] [place] [address] [id number] Tramaine Evans Self - patient is the insured 3 Medical (General) History Medical History History ICD Code HTN Migraine Depression Remote h/o right orbital fracture s/p pl ate
--- OUTSIDE RECORDS SUMMARY | 2025-05-24 01:50 | XMS_ITS | Clinical Summary ---
Author Organization [facility] [place] [address] Address [address] [place] [id number] Care Team Providers Care Post Doctoral Researcher Name Role Phone Unknown, Notinfile Primary Care [...] mg total) by mouth daily Active rizatriptan COMMERCIAL REAL ESTATE BROKER (MAXALT-COMMERCIAL REAL ESTATE BROKER) 10 mg disintegrating tabletIndications :Migraine Take 1 tablet (10 mg total) by mouth once as needed for migraine May repeat in 2 hours if unresolved. Do not exceed 30 mg in 24 hours. 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
== END 2025-05-23 20:44 | disposition home or self-care (01) ==
PROVIDERS: Emergency Provider Emergency Medicine; PCP Family Medicine
DX: R51.9 Headache, unspecified (principal)
CPT/HCPCS: 96360; 99283; A9270; J7120